=== PATIENT | female | born 1940 | race Caucasian/White ===

== ENCOUNTER → 2016-07-01 | Outpatient (CLI) | payer MEDICARE ==
[~2016-07-01] MED LIST: ACET-654 PO; ASPI325T PO; CARA1TAB2 PO; DICL75TA PO; LEXA5TAB13 PO; LISI40TAB PO; MAGN400T2 PO; OMEP20CA3 PO; ORPH100T PO; PROT1TAB2 PO; TUMS500C PO; VITA-130 PO; VITA100066 PO; VITMTA PO
--- NOTE | 2016-07-01 14:32 | REP ---
BILATERAL HIPS, AP PELVIS, FIVE VIEWS: HISTORY: Back and hip pain. RIGHT HIP: There is no acute fracture or dislocation. There is narrowing of the joint space. There is sclerosis of the acetabulum. IMPRESSION: Degenerative change as described above. LEFT HIP: There is no acute fracture or dislocation. There is narrowing of the joint space. There is sclerosis of the acetabulum.
== END ==
LOC: M CLY 12:51
PROVIDERS: ATTEND Family Medicine
DX: M15.9 Polyosteoarthritis, unspecified (principal); I10 Essential (primary) hypertension; K31.1 Adult hypertrophic pyloric stenosis

== ENCOUNTER → 2016-07-01 | Outpatient (REF) | payer MEDICARE ==
[2016-07-01 18:34] LABS: ALBUMIN 3.8 GM/DL (3.2-5.2); ALBUMIN/GLOBULIN RATIO 1.15 (1.00-1.93); BILIRUBIN,TOTAL 0.3 MG/DL (0.2-1.0); CALCIUM LEVEL 9.5 MG/DL (8.8-10.2); CREATININE FOR GFR 1.07 MG/DL (0.55-1.02); GLOMERULAR FILTRATION RATE 53.2 (>39); POTASSIUM SERUM 4.8 MEQ/L (3.5-5.1); TOTAL PROTEIN 7.1 GM/DL (6.4-8.2)
[2016-07-01 19:13] LABS: MEAN CORPUSCULAR HEMOGLOBIN 29.1 pg (27.0-33.0); MEAN CORPUSCULAR HGB CONC 31.5 g/dl (32.0-36.5); MEAN CORPUSCULAR VOLUME 92.6 fl (80.0-96.0); WHITE BLOOD COUNT 6.1 K/mm3 (4.0-10.0)
== END ==
LOC: M SFHCCLAY 12:32
PROVIDERS: ATTEND Family Medicine
DX: K31.1 Adult hypertrophic pyloric stenosis (principal); M15.9 Polyosteoarthritis, unspecified; I10 Essential (primary) hypertension

== ENCOUNTER 2016-07-18 05:05 | Emergency (ER) | payer MEDICARE ==
[~2016-07-18] VITALS: Ht 162.6 cm; Wt 90.7 kg
[2016-07-18] MEDS ORDERED: TRAM37.53 PO (05:34)
[2016-07-18] MEDS ORDERED: NITROGLYCERIN 0.4 MG SUBL TABLET SL PRN (06:00)
[2016-07-18 06:06] LABS: BASO % 0.6 % (0.0-1.0); EOS # 0.3 K/mm3 (0.0-0.50); EOS % 3.9 % (0.0-3.0); LARGE UNSTAINED CELL # 0.1 K/mm3 (0.0-0.4); LARGE UNSTAINED CELL % 1.6 % (0.0-4.0); LYMPH # 2.5 K/mm3 (1.5-4.5); LYMPH % 33.6 % (24.0-44.0); MEAN CORPUSCULAR HEMOGLOBIN 29.9 pg (27.0-33.0); MEAN CORPUSCULAR HGB CONC 32.9 g/dl (32.0-36.5); MEAN CORPUSCULAR VOLUME 90.8 fl (80.0-96.0); MONO # 0.4 K/mm3 (0.0-0.8); NEUTROPHILS # 3.9 K/mm3 (1.8-7.7); NEUTROPHILS % 55.3 % (36.0-66.0); PLATELET COUNT, AUTOMATED 233 k/mm3 (150-450); RED CELL DISTRIBUTION WIDTH 12.7 % (11.5-14.5)
[2016-07-18 06:18] LABS: ANION GAP 9 MEQ/L (8-16); BLOOD UREA NITROGEN 25 MG/DL (7-18); CALCIUM LEVEL 9.5 MG/DL (8.8-10.2); CARBON DIOXIDE LEVEL 23 MEQ/L (21-32); CHLORIDE LEVEL 108 MEQ/L (98-107); CREATININE FOR GFR 1.14 MG/DL (0.55-1.02); GLOMERULAR FILTRATION RATE 49.5 (>39); GLUCOSE, FASTING 95 MG/DL (83-110); POTASSIUM SERUM 4.7 MEQ/L (3.5-5.1); SODIUM LEVEL 140 MEQ/L (136-145)
[2016-07-18 06:30] VITALS: BP 171/80
[2016-07-18] MEDS ORDERED: ACETAMINOPHEN TAB 650MG DOSE (2X325MG) PO ONE (08:30)
--- NOTE | 2016-07-18 10:17 | REP ---
CHEST, TWO VIEWS: HISTORY: Chest pain. COMPARISON: 09/04/2015 FINDINGS: The superior mediastinal structures are midline. The cardiac silhouette is unremarkable in size, shape and position. The diaphragmatic surfaces of the lungs are regular and the costophrenic angles are clear. The pulmonary rojas are clear. The imaged osseous structures are intact. IMPRESSION: There is no acute cardiopulmonary disease. Signed by Jalen Farmer DO 07/18/2016 10:24 A
[2016-07-18 12:45] VITALS: BP 140/73
--- NOTE | 2016-07-18 14:48 | ECGEPIP ---
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
--- NOTE | 2016-07-18 14:50 | ECGEPIP ---
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
== END 2016-07-18 12:51 | disposition home or self-care (01) ==
LOC: M ED 06:47
DX: R07.89 Other chest pain (principal); I10 Essential (primary) hypertension; K21.9 Gastro-esophageal reflux disease without esophagitis; Z79.899 Other long term (current) drug therapy; Z79.891 Long term (current) use of opiate analgesic; Z88.0 Allergy status to penicillin

== ENCOUNTER → 2017-05-17 | Outpatient (REF) | payer MEDICARE ==
[2017-05-17 17:21] LABS: ALBUMIN 3.9 GM/DL (3.2-5.2); ALBUMIN/GLOBULIN RATIO 1.18 (1.00-1.93); ALKALINE PHOSPHATASE 93 U/L (45-117); ALT/SGPT 38 U/L (12-78); ANION GAP 5 MEQ/L (8-16); AST/SGOT 16 U/L (7-37); BILIRUBIN,TOTAL 0.3 MG/DL (0.2-1.0); BLOOD UREA NITROGEN 22 MG/DL (7-18); CALCIUM LEVEL 9.6 MG/DL (8.8-10.2); CARBON DIOXIDE LEVEL 29 MEQ/L (21-32); CHLORIDE LEVEL 108 MEQ/L (98-107); CREATININE FOR GFR 1.15 MG/DL (0.55-1.30); GLUCOSE, FASTING 85 MG/DL (70-100); POTASSIUM SERUM 4.6 MEQ/L (3.5-5.1); SODIUM LEVEL 142 MEQ/L (136-145); TOTAL PROTEIN 7.2 GM/DL (6.4-8.2)
[2017-05-17 17:41] LABS: HEMATOCRIT 47.8 % (36.0-47.0); MEAN CORPUSCULAR HEMOGLOBIN 28.7 pg (27.0-33.0); MEAN CORPUSCULAR HGB CONC 31.4 g/dl (32.0-36.5); MEAN CORPUSCULAR VOLUME 91.6 fl (80.0-96.0); PLATELET COUNT, AUTOMATED 256 10^3/uL (150-450); RED BLOOD COUNT 5.22 10^6/uL (4.00-5.40); WHITE BLOOD COUNT 6.9 10^3/uL (4.0-10.0)
== END ==
LOC: M SFHCCLAY 12:48
DX: I10 Essential (primary) hypertension (principal); M15.9 Polyosteoarthritis, unspecified
CPT/HCPCS: 80053

== ENCOUNTER → 2018-05-24 | Outpatient (REF) | payer MEDICARE ==
[~2018-05-24] MED LIST changes: -ACET-654 PO; +ACET1TAB55 PO; -CARA1TAB2 PO; +CARA1TAB6 PO; +LISI40TA52 PO; -LISI40TAB PO; +TRAM37.53 PO; -VITA-130 PO; +VITA500T PO
[2018-05-24 18:52] LABS: ALBUMIN 3.8 GM/DL (3.2-5.2); BILIRUBIN,TOTAL 0.3 MG/DL (0.2-1.0); CALCIUM LEVEL 9.8 MG/DL (8.8-10.2); CREATININE FOR GFR 1.16 MG/DL (0.55-1.30); GLOMERULAR FILTRATION RATE 48.4 (>39); POTASSIUM SERUM 4.6 MEQ/L (3.5-5.1); THYROID STIMULATING HORMONE 2.42 uIU/ML (0.358-3.740)
[2018-05-24 18:57] LABS: HEMATOCRIT 48.9 % (36.0-47.0); HEMOGLOBIN 15.4 g/dl (12.0-15.5); MEAN CORPUSCULAR HEMOGLOBIN 29.6 pg (27.0-33.0); MEAN CORPUSCULAR HGB CONC 31.5 g/dl (32.0-36.5); PLATELET COUNT, AUTOMATED 243 10^3/uL (150-450); WHITE BLOOD COUNT 6.2 10^3/uL (4.0-10.0)
== END ==
LOC: M SFHCCLAY 13:21
PROVIDERS: ATTEND Family Medicine
DX: I10 Essential (primary) hypertension (principal); M15.9 Polyosteoarthritis, unspecified
CPT/HCPCS: 80053; 84443; 85027; G0463; G8483

== ENCOUNTER → 2019-09-12 | Outpatient (REF) | payer MEDICARE ==
[~2019-09-12] MED LIST changes: +ASPI-1 PO; -ASPI325T PO; +OMEP1CAP73 PO; -OMEP20CA3 PO; +VITA-243 PO; -VITA500T PO
[2019-09-13 12:02] LABS: VITAMIN B12 LEVEL 939 PG/ML (247-911)
== END ==
LOC: M SFHCCLAY 13:53
PROVIDERS: ATTEND Family Medicine
DX: F03.90 Unspecified dementia, unspecified severity, without behavioral disturbance, psychotic disturbance, mood disturbance, and anxiety (principal)
CPT/HCPCS: 82607; 84443; 86780; G0463

== ENCOUNTER → 2019-10-02 | Outpatient (CLI) | payer MEDICARE ==
--- NOTE | 2019-10-02 12:07 | REPVR ---
PROCEDURE INFORMATION: Exam: MR Head Without Contrast Exam date and time: 10/02/2019 11:23 AM Age: 79 years old Clinical indication: Altered mental status/memory loss; Patient HX: Short term memory loss, ; additional info: Dementia without behavioral disturbance, unsp dementia type TECHNIQUE: Imaging protocol: MR of the head without contrast. COMPARISON: No relevant prior studies available. FINDINGS: Brain: No restricted diffusion is seen to suggest acute infarction. There is no acute intracranial hemorrhage, cerebral edema, or midline shift. Age-related cerebral and cerebellar substance loss is present. Scattered increased T2 and FLAIR signal within the periventricular and subcortical white matter is present. This is nonspecific but likely related to chronic microangiopathic ischemic change. Ventricles: Mild ex vacuo dilation of the lateral ventricles is noted. Bones/joints: Unremarkable. Sinuses: Normal as visualized. No acute sinusitis. Mastoid air cells: Normal as visualized. No mastoid effusion. Orbits: Unremarkable. Soft tissues: There is a 2.0 x 1.5 x 1.0 cm left forehead lipoma. IMPRESSION: 1. No acute intracranial abnormality. 2. Chronic findings as discussed above. Electronically signed by: Pankaj Killian On 10/02/2019 11:49:35 AM
== END ==
LOC: M RAD 10:10
PROVIDERS: ATTEND Family Medicine
DX: F03.90 Unspecified dementia, unspecified severity, without behavioral disturbance, psychotic disturbance, mood disturbance, and anxiety (principal)

== ENCOUNTER → 2020-05-08 | Outpatient (REF) | payer MEDICARE ==
[2020-05-08 11:52] LABS: HEMOGLOBIN 15.5 g/dl (12.0-15.5); MEAN CORPUSCULAR HEMOGLOBIN 28.8 pg (27.0-33.0); MEAN CORPUSCULAR HGB CONC 30.4 g/dl (32.0-36.5); MEAN CORPUSCULAR VOLUME 94.8 fl (80.0-96.0); PLATELET COUNT, AUTOMATED 263 10^3/uL (150-450); RED BLOOD COUNT 5.38 10^6/uL (4.00-5.40); WHITE BLOOD COUNT 6.7 10^3/uL (4.0-10.0)
[2020-05-08 12:20] LABS: ALBUMIN 3.9 GM/DL (3.2-5.2); BILIRUBIN,TOTAL 0.5 MG/DL (0.2-1.0); CALCIUM LEVEL 10.2 MG/DL (8.8-10.2); CHOLESTEROL RISK RATIO 4.06 (<5); CREATININE FOR GFR 1.31 MG/DL (0.55-1.30); GLOMERULAR FILTRATION RATE 41.8 (>39); POTASSIUM SERUM 4.5 MEQ/L (3.5-5.1); TOTAL PROTEIN 7.1 GM/DL (6.4-8.2)
== END ==
LOC: M SFHCCLAY 07:46
PROVIDERS: ATTEND Family Medicine
DX: M15.9 Polyosteoarthritis, unspecified (principal); I10 Essential (primary) hypertension

== ENCOUNTER → 2020-11-20 | Outpatient (CLI) | payer MEDICARE ==
--- NOTE | 2020-11-20 13:53 | REP ---
INDICATION: OSTEOARTHRITIS. COMPARISON: None. TECHNIQUE: Three views FINDINGS: There is no evidence of an acute fracture or destructive osseous lesion. There is evidence of sclerosis on both sides of each SI joint right greater than left. Sclerotic changes are also seen involving the pubic symphysis. IMPRESSION: There is no evidence of an acute abnormality. There are chronic changes seen involving the SI joints and pubic symphysis. Chronic sacroiliitis is likely. <Electronically signed by Jalen Farmer > 11/20/20 [id number]
== END ==
LOC: M CLY 13:21
PROVIDERS: ATTEND Family Medicine
DX: M19.91 Primary osteoarthritis, unspecified site (principal)

== ENCOUNTER 2021-01-13 12:35 | Inpatient (IN) | payer MEDICARE ==
[~2021-01-13] VITALS: Ht 152.4 cm; Wt 84.0 kg
--- OUTSIDE RECORDS SUMMARY | 2021-01-13 12:43 | CCD ---
Author Author [facility] Organization [facility] Address Unknown Phone Unavailable Care Team Providers Care Master Cook Name Role Phone Iam Guerrero Unavailable PROBLEMS Type Condition ICD9-CM Code [id number] Code Onset Dates Condition S tatus W/U Status Risk SNOMED Code Notes Problem Essential hypertension I10 Active confirmed 09028604 Problem Encounter for general adult medical exam ination with abnormal findings Z00.01 Active confirmed 214345804 Problem Dementia without behavioral disturbance, unspeci fied dementia type F03.90 Active confirmed 59044279 Problem Anxiety F41.9 Active confirmed 98607694 Problem Osteoarthrosis involving multiple sites M15.9 Active confirmed 717423864 Problem 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 Acti ve confirmed 92455312 Problem Encounter for immunization Z23 Active confirmed 085995962 ALLERGIES Allergen (clinical drug ingredient) Drug/Non Drug Allergy do cumented on EMR Reaction Allergy Type Onset Date Status Penicillin (For Allergies Use Only) Hives Drug Allerg y Active donepezil Donepezil HCl([facility] Code:[address]-32) nightmares Drug Moustapha rgy Active ENCOUNTERS from 1940 to 2020-11-24 Encounter Location Date Provider Diagnosis [facility] [phone] [place] [address] Nov, Iam Guerrero Osteoarthrosis involving multiple sites M15.9 and Essential hypertension I10 IMMUNIZATIONS Vaccine Route Administration Date Status COVID-19 dose #2 given elsewhere Unspecified Unknown Apr 26, 2020 Administered COVID-19 dose #1 given elsewhere Unspecified Unknown Mar 29, 2020 Administered Influenza 18 yrs & older Flublok IM Intramuscular Dec 26, 2019 Administered Influenza 18 yrs & older Flublok IM Intramuscular Jan 23, 2019 Administered Influenza 18 yrs & older Flublok Unknown May 24, 2018 Refused Pneumococcal Adult 0.5mL Pneumovax 23 IM Intramuscular Nov 17, 2017 Administered Pneumococcal 0.5mL Prevnar 13 IM Intramuscular July 30, 2015 A dministered SOCIAL HISTORY Tobacco Use: Social History Observation Description Date Details (start date - stop date) Never Smoker Sex Assigned At : Social History Observation Description Sex Assigned At Unknown Education: Question Answer Notes Level of Education: High School Audit Question Answer Notes Total Score: 0 Interpretation: Alcohol Education Sexual Hx: Question Answer Notes Had sex in the last 12 months (vaginal, oral, or anal)? No Have you ever had an STD? No Drug and Alcohol Question Answer Notes Total Score: 0 Interpretation: No problems reported Alcohol Screening: Question Answer Notes Did you have a drink containing alcohol in the past year? Ye s Points 1 Interpretation Negative How often did you have six or more drinks on one occas ion in the past year? Never (0 points) How many drinks did you have on a typica l day when you were drinking in the past year? 1 or 2 (0 points) How often did you have a drink containing alcohol in t he past year? Monthly or less (1 point) BMI Care Goal Follow-Up Question Answer Notes Above Normal BMI Follow-Up Dietary management educatio n, guidance, and counseling Tobacco Use: Question Answer Notes Are you a: never smoker never smoker Additional Findings: Tobacco User none Additional Findings: Tobacco Non-User Current non-smoker REASON FOR REFERRAL No Information VITAL SIGNS Weight 184.12 lbs Nov, Height 4'11" in Nov, BMI 37.18 kg/m2 Nov, Heart Rate 75 /min Nov, Respiratory Rate 18 /min Nov, Temperature 98 degrees Fahrenheit Nov, Oximetry 95RA Nov, Blood pressure systolic 120 mm Hg Nov, Blood pressure diastolic 80 mm Hg Nov, MEDICATIONS Medication SIG (Take, Route, Frequency, Duration) Notes Start Da te End Date Status Prevagen Extra Strength 20 MG as directed Orally Active tiZANidine HCl 4 MG 1 tablet as needed Orally Th ree times a day, prn spasm and pain July, Active Lisinopril 40 MG 1 tabs Orally Once a day Active Multi For Her 1 tab Orally once daily Active traMADol-Acetaminophen 325-37.5 MG 1 tab Orally every 8 hours as needed for pain, MDD=3 25 Apr, 2019 Active PROCEDURES No Information RESULTS No Results REASON FOR VISIT 6 mo f/u MEDICAL (GENERAL) HISTORY Type Description Date Medical History HTN Medical History OA Medical History PYLORIC SPHINCTER STENOSIS (2X UNDERWENT ATTMPT TO DILATE) Medical History History of duodenal ulcer Medical History Duodenal stricture Surgical History APPENDIX Surgical History GALLBLADDER Surgical History ETOPIC Surgical History TONSILS Hospitalization History Abd pain secondary to pyloric stenos is/duodentis 09/04/2015-09/06/2015 Goals Section No Information Health Concerns No Information MEDICAL EQUIPMENT No Information MENTAL STATUS No Information FUNCTIONAL STATUS No Information ASSESSMENTS Encounter Date Diagnosis Assessment Notes Treatment Notes Treatm ent Clinical Notes Nov, Osteoarthrosis involving multiple sites (ICD-10 - M15.9) Nov, Essential hypertension (ICD-10 - I10) PLAN OF TREATMENT Medication Medication Name Sig Start Date Stop Date Prevagen Extra Strength 20 MG as directed Orally Multi For Her 1 tab Orally once daily traMADol-Acetaminophen 325-37.5 MG 1 tab Orally every 8 hours as needed for pain, MDD=3 25 Apr, 2019 Lisinopril 40 MG 1 tabs Orally Once a day tiZANidine HCl 4 MG 1 tablet as needed Orally Th ree times a day, prn spasm and pain July, Future Test Test Name Order Date Comprehensive Metabolic Profile (CMP) [id number] CBC - Complete Blood Count [id number] [facility] [employer] [id number] Next Appt Details 4 Months Reason: Insurance Providers Payer Name Payer Address Payer Phone Insured Name Patient Relati onship to Insured Coverage Start Date Coverage End Date [employer] OPTIONS [facility] CLAIM DIV [address] [facility] [phone] ARUN SHORT self MEDICARE RR [address] [address] [facility] [id number] SONDRA SHORT 2005
--- OUTSIDE RECORDS SUMMARY | 2021-01-13 12:43 | CCD ---
Author Author [facility] Organization [facility] Address Unknown Phone Unavailable Care Team Providers Care Stripper And Taper Name Role Phone Iam Guerrero Unavailable PROBLEMS Type Condition ICD9-CM Code [id number] Code Onset Dates Condition S tatus W/U Status Risk SNOMED Code Notes Problem Essential hypertension I10 Active confirmed 00250548 Problem Anxiety F41.9 Active confirmed 08271381 Problem Dementia without behavioral disturbance, unspeci fied dementia type F03.90 Active confirmed 82563689 Problem Sacroiliitis M46.1 Active confirmed 7916998 9 Problem Osteoarthrosis involving multiple sites M15.9 Active confirmed 289838353 Problem 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 Acti ve confirmed 77517114 Problem Encounter for immunization Z23 Active confirmed 507964970 Problem Encounter for general adult medical exam ination with abnormal findings Z00.01 Active confirmed 265555058 ALLERGIES Allergen (clinical drug ingredient) Drug/Non Drug Allergy do cumented on EMR Reaction Allergy Type Onset Date Status Penicillin (For Allergies Use Only) Hives Drug Allerg y Active donepezil Donepezil HCl([facility] Code:[address]-91) nightmares Drug Moustapha rgy Active ENCOUNTERS from 1940 to 2020-11-26 Encounter Location Date Provider Diagnosis [place] [address] [facility] [phone] [place] [address] Nov, 2020 Iam Guerrero Sacroiliitis M46.1 IMMUNIZATIONS Vaccine Route Administration Date Status COVID-19 [...] Tobacco Non-User Current non-smoker REASON FOR REFERRAL from 1940 to 2020-11-26 Reason please eval and treat Diagnosis 1 Sacroiliitis (M46.1) Referral Organization [facility] Referring Provider First Name Iam Referring Provider Last Name Guerrero Referring Provider Specialty Family Medicine Referred Provider Specialty Physical Therapist Referral Priority Routine VITAL SIGNS No information MEDICATIONS Medication SIG (Take, Route, Frequency, Duration) [...] Information RESULTS No Results REASON FOR VISIT No Information MEDICAL (GENERAL) HISTORY Type Description Date Medical [...] Treatment Notes Treatm ent Clinical Notes Nov, Sacroiliitis (ICD-10 - M46.1) PLAN OF TREATMENT Medication Medication Name Sig [...] a day, prn spasm and pain July, Referrals Referral Date Details please eval and treat Insurance Providers Payer Name Payer Address Payer Phone Insured Name Patient Relati onship to Insured Coverage Start Date Coverage End Date [facility] OPTIONS [facility] CLAIM DIV [address] [facility] [phone] ARUN SHORT MEDICARE RR [address] [address] [facility] [id number] SONDRA SHORT 2005
--- OUTSIDE RECORDS SUMMARY | 2021-01-13 12:43 | CCD ---
Author Author [facility] Organization [facility] Address Unknown Phone Unavailable Care Team Providers Care Irrigation Service Technician Name Role Phone Iam Guerrero Unavailable PROBLEMS Type Condition ICD9-CM Code [id number] Code Onset Dates Condition S tatus W/U Status Risk SNOMED Code Notes Problem Essential hypertension I10 Active confirmed 20787122 Problem Anxiety F41.9 Active confirmed 82826973 Problem Dementia without behavioral disturbance, unspeci fied dementia type F03.90 Active confirmed 94792043 Problem Sacroiliitis M46.1 Active confirmed 8582378 9 Problem Osteoarthrosis involving multiple sites M15.9 Active confirmed 021525459 Problem 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 Acti ve confirmed 47856715 Problem Encounter for immunization Z23 Active confirmed 838085805 Problem Encounter for general adult medical exam ination with abnormal findings Z00.01 Active confirmed 370678939 ALLERGIES Allergen (clinical drug ingredient) Drug/Non Drug Allergy do cumented on EMR Reaction Allergy Type Onset Date Status Penicillin (For Allergies Use Only) Hives Drug Allerg y Active donepezil Donepezil HCl([facility] Code:[address]-13) nightmares Drug Moustapha rgy Active ENCOUNTERS from 1940 to 2020-11-26 Encounter Location Date Provider Diagnosis [facility] [phone] [place] [address] Nov, Iam Guerrero Osteoarthrosis involving multiple sites [...] REASON FOR REFERRAL No Information VITAL SIGNS No information MEDICATIONS Medication SIG (Take, Route, Frequency, Duration) Notes Start Da te End Date Status Prevagen Extra Strength 20 MG as directed Orally Active traMADol-Acetaminophen 325-37.5 MG 1 tab Orally every 8 hours as needed for pain, MDD=3 for 30 Days Nov, Active tiZANidine HCl 4 MG 1 tablet as needed Orally Th ree times a day, prn spasm and pain July, Active Multi For Her 1 tab Orally once daily Active Lisinopril 40 MG 1 tabs Orally Once a day for 90 day(s) Active PROCEDURES No Information RESULTS No Results REASON FOR VISIT med refill MEDICAL (GENERAL) HISTORY Type Description Date Medical [...] For Her 1 tab Orally once daily Lisinopril 40 MG 1 tabs Orally Once a day for 90 day(s) tiZANidine HCl 4 MG 1 tablet as needed Orally Th ree times a day, prn spasm and pain July, traMADol-Acetaminophen 325-37.5 MG 1 tab Orally every 8 hours as needed for pain, MDD=3 for 30 Days Nov, Insurance Providers Payer Name Payer Address Payer Phone Insured Name Patient Relati onship to Insured Coverage Start Date Coverage End Date [employer] OPTIONS [facility] CLAIM DIV [address] [facility] [phone] ARUN SHORT self MEDICARE RR [address] [address] [facility] [id number] SONDRA SHORT 2005
--- OUTSIDE RECORDS SUMMARY | 2021-01-13 12:43 | CCD ---
Author Author [facility] Address Unknown Phone Unavailable Support Name Relationship Address Phone RE Next Of Kin Unknown Unavailable THOMAS SHORT Next Of Kin [address] [place] [address] [place], [place] Unavailable Re-disclosure Warning The records that you are about to access may contain information from federally-assisted alcohol or drug abuse programs. If such information is present, then the following federally mandated warning applies: This information has been disclosed to you from records protected by federal confidentiality rules (42 CFR part 2). The federal rules prohibit you from making any further disclosure of this information unless further disclosure is expressly permitted by the written consent of the person to whom it pertains or as otherwise permitted by 42 CFR part 2. A general authorization for the release of medical or other information is NOT sufficient for this purpose. The Federal rules restrict any use of the information to criminally investigate or prosecute any alcohol or drug abuse patient.The records that you are about to access may contain highly sensitive health information, the redisclosure of which is protected by Article 27-F of the [facility] Public Health law. If you continue you may have access to information: Regarding HIV / AIDS; Provided by facilities licensed or operated by the [facility] Office of Mental Health; or Provided by the [facility] Office for People With Developmental Disabilities. If such information is present, then the following [facility] mandated warning applies: This information has been disclosed to you from confidential records which are protected by state law. State law prohibits you from making any further disclosure of this information without the specific written consent of the person to whom it pertains, or as otherwise permitted by law. Any unauthorized further disclosure in violation of state law may result in a fine or half-way sentence or both. A general authorization for the release of medical or other information is NOT sufficient authorization for further disc losure. Family History Family Member Name Family Member Gender Family Member Status Date o f Status Description Data Source(s) Unknown Female Problem MEDENT ([facility]) Unknown Female Problem MEDENT ([facility]) Unknown Unknown Problem MEDENT ([facility]) Encounters Encounter Providers Location Date Indications Data Source(s ) [place] [address] [facility] [facility] [address] 11/26/2020 12:00:00 AM EDT [facility] [place] [address] [facility] [facility] [address] 11/25/2020 12:00:00 AM EDT [facility] [place] [address] [facility] [facility] [address] 11/13/2020 12:00:00 AM EDT [facility]1 [facility] [place] [address] [facility] [address] 04/30/2020 12:00:00 AM EST eCW1 ([facility]) [place] [address] [facility] [address] 12/26/2019 12:00:00 AM EDT eCW1 ([facility]) [place] [address] [facility] [address] 12/26/2019 12:00:00 AM EDT eCW1 ([facility]) [place] [address] [facility] [address] 12/12/2019 12:00:00 AM EDT eCW1 ([facility]) [facility] [address] [facility] [address] 11/20/2019 12:00:00 AM EDT eCW1 ([facility]) Immunizations Vaccine Date Status Description Data Source(s) COVID-19 dose #2 given elsewhere Unspecified 04/26/2020 01:5 9:00 PM EST completed eCW1 ([facility]) COVID-19 dose #2 given elsewhere Unspecified 04/26/2020 01:5 9:00 PM EST completed eCW1 ([facility]) COVID-19 dose #2 given elsewhere Unspecified 04/26/2020 01:5 9:00 PM EST completed eCW1 ([facility]) COVID-19 dose #2 given elsewhere Unspecified 04/26/2020 01:5 9:00 PM EST completed eCW1 ([facility]) COVID-19 VACCINE Moderna 04/26/2020 12:00:00 AM EST completed [facility] Vaccine Series Complete: YESThis Data wa s Submitted to [facility] Via [employer]. COVID-19 VACCINE, MRNA-1273, LNP-S (MODERNA)/PF 04/26/2020 1 2:00:00 AM EST completed [facility] COVID-19 dose #1 given elsewhere Unspecified 03/29/2020 06:4 1:00 AM EST completed eCW1 ([facility]) COVID-19 dose #1 given elsewhere Unspecified 03/29/2020 06:4 1:00 AM EST completed eCW1 ([facility]) COVID-19 dose #1 given elsewhere Unspecified 03/29/2020 06:4 1:00 AM EST completed eCW1 ([facility]) COVID-19 dose #1 given elsewhere Unspecified 03/29/2020 06:4 1:00 AM EST completed eCW1 ([facility]) COVID-19 VACCINE, MRNA-1273, LNP-S (MODERNA)/PF 03/29/2020 1 2:00:00 AM EST completed [facility] COVID-19 VACCINE Moderna 03/29/2020 12:00:00 AM EST completed [facility] Vaccine Series Complete: NOThis Data was Submitted to [facility] Via [employer]. influenza, recombinant, quadrIvalent,injectable, prese rvative free 12/26/2019 09:24:00 AM EDT completed eCW1 ([facility]) influenza, recombinant, quadrIvalent,injectable, prese rvative free 12/26/2019 09:24:00 AM EDT completed eCW1 ([facility]) influenza, recombinant, quadrIvalent,injectable, prese rvative free 12/26/2019 09:24:00 AM EDT completed eCW1 ([facility]) influenza, recombinant, quadrIvalent,injectable, prese rvative free 12/26/2019 09:24:00 AM EDT completed eCW1 ([facility]) influenza, recombinant, quadrIvalent,injectable, prese rvative free 12/26/2019 09:24:00 AM EDT completed eCW1 ([facility]) influenza, recombinant, quadrIvalent,injectable, prese rvative free 12/26/2019 09:24:00 AM EDT completed eCW1 ([facility]) Medications Medication Brand Name Start Date Product Form Dose Route Admi nistrative Instructions Pharmacy Instructions Status Indications Reaction Description Data Source(s) traMADol-Acetaminophen 325-37.5 MG UNK 11/26/2020 12:00:00 AM EDT active traMADol-Acetaminophen 325-37.5 MG eCW1 ([facility]) Insurance Providers Payer name Policy type / Coverage type Policy ID Covered democrat ID Covered democrat's relationship to cárdenas Policy Cárdensa Plan Information [facility] OPTIONS [id number] Medicare [employer] Medicare Primary [id number] Self [facility] [id number] Self [id number] Medicare [employer] [place] Medicare Primary [id number] Self [id number] [facility] Healthcare Options [facility] Part B [id number] Self ANS-Medicare Part B [id number] ANSI-Commercial [id number] ANSI-Commercial [id number] ANSI-Medicare Part B [id number] ANSI-Commercial [id number] ANSI-Medicare Part B [id number] ANSI-Commercial [id number] ANSI-Medicare Part B [id number] ANSI-Commercial [id number] ANSI-Medicare Part B [id number] ANSI-Medicare Part B [id number] ANSI-Commercial [id number] ANSI-Medicare Part B [id number] ANSI-Commercial [id number] ANSI-Commercial [id number] ANSI-Medicare Part B [id number] ANSI-Commercial [id number] ANSI-Medicare Part B [id number] ANSI-Commercial [id number] ANSI-Medicare Part B [id number] ANSI-Commercial [id number] ANSI-Medicare Part B [id number] ANSI-Medicare Part B [id number] ANSI-Commercial [id number] [employer] HE[employer] CARE OPTIONS [id number] SP [id number] MEDICARE [id number] SP [id number] AARP O [id number] S [id number] [employer] MEDICARE C [id number] S [id number] MEDICARE C [id number] S [id number] Medicare Dme Supplies [facility] Part B [id number] Self [id number] [facility] [facility] Options [facility] Part B [id number] Self Medicare [address] Medicare Primary [id number] Self [employer] C[employer] OPTIONS [id number] SP [id number] [facility] Options [facility] Part B [id number] Self MEDICARE [id number] SP [id number] MEDICARE [id number] SP [id number] MEDICARE C [id number] S [id number] AARP O [id number] S [id number] Problems, Conditions, and Diagnoses Code Display Name Description Problem Type Effective Dates Data Source(s) M46.1 [id number] Sacroiliitis Problem 11/25/2020 12:00:00 AM EDT eCW1 ([facility]) Surgeries/Procedures Procedure Description Date Indications Data Source(s) Immunization: Flublok Quadrivalent (18 years & older) 0.5mL IM (Influenza) 12/26/2019 12:00:00 AM EDT eCW1 ([facility]) Results No Information Social History Code Duration Value Status Description Data Source(s ) Smoking 11/13/2020 12:00:00 AM EDT Never Smoker completed Never S bekahker eCW1 ([facility]) Smoking 11/13/2020 12:00:00 AM EDT Never Smoker completed Never S moker eCW1 ([facility]) Smoking 11/13/2020 12:00:00 AM EDT Never Smoker completed Never S moker eCW1 ([facility]) Smoking 04/30/2020 12:00:00 AM EST Never Smoker completed Never S moker eCW1 ([facility]) Smoking 12/26/2019 12:00:00 AM EDT Never Smoker completed Never S moker eCW1 ([facility]) Smoking 12/26/2019 12:00:00 AM EDT Never Smoker completed Never S moker eCW1 ([facility]) Vital Signs ID Date Data Source UNK Name Value Range Interpretation Code Description Data Source(s) Body mass index (BMI) [Ratio] 37.18 kg/m2 37.18 kg/m2 eCW1 ([facility]) Heart rate 75 /min 75 /min eCW1 ([facility]) Respiratory rate 18 /min 18 /min eCW1 ([facility]) Body temperature 98 [degF] 98 [degF] eCW1 ([facility]) Systolic blood pressure 120 mm[Hg] 120 mm[Hg] e CW1 ([facility]) Diastolic blood pressure 80 mm[Hg] 80 mm[Hg] eCW1 ([facility]) Body weight 184.12 [lb_av] 184.12 [lb_av] eCW1 ([facility]) Body height [in_i] eCW1 ([facility]) Body weight 198 [lb_av] 198 [lb_av] eCW1 ([facility]) Body height [in_i] eCW1 ([facility]) Body mass index (BMI) [Ratio] 39.99 kg/m2 39.99 kg/m2 eCW1 ([facility]) Heart rate 72 /min 72 /min eCW1 ([facility]) Respiratory rate 18 /min 18 /min eCW1 ([facility]) Body temperature 98 [degF] 98 [degF] eCW1 ([facility]) Systolic blood pressure 130 mm[Hg] 130 mm[Hg] e CW1 ([facility]) Diastolic blood pressure 80 mm[Hg] 80 mm[Hg] eCW1 ([facility]) Body weight 197 [lb_av] 197 [lb_av] eCW1 ([facility]) Body height [in_i] eCW1 ([facility]) Body mass index (BMI) [Ratio] 39.78 kg/m2 39.78 kg/m2 eCW1 ([facility]) Heart rate 68 /min 68 /min eCW1 ([facility]) Respiratory rate 18 /min 18 /min eCW1 ([facility]) Body temperature 98 [degF] 98 [degF] eCW1 ([facility]) Systolic blood pressure 114 mm[Hg] 114 mm[Hg] e CW1 ([facility]) Diastolic blood pressure 75 mm[Hg] 75 mm[Hg] eCW1 ([facility]) Patient Treatment Plan of Care Planned Activity Planned Date Details Description Data Source (s) traMADol-Acetaminophen 325-37.5 MG 11/26/2020 12:00:00 AM EDT eCW1 ([facility])
[2021-01-13] MEDS ORDERED: NS 1,000 ML IV SCH (14:05)
[2021-01-13 14:09] LABS: BASO % 0.3 % (0.0-1.0); EOS % 0.1 % (0.0-3.0); HEMATOCRIT 45.4 % (36.0-47.0); HEMOGLOBIN 14.2 g/dl (12.0-15.5); LYMPH # 1.9 10^3/uL (1.5-5.0); MEAN CORPUSCULAR HEMOGLOBIN 28.1 pg (27.0-33.0); MEAN CORPUSCULAR HGB CONC 31.3 g/dl (32.0-36.5); MEAN CORPUSCULAR VOLUME 89.7 fl (80.0-96.0); MONO # 0.8 10^3/uL (0.0-0.8); MONO % 7.1 % (2.0-8.0); NEUTROPHILS % 74.2 % (36.0-66.0); PLATELET COUNT, AUTOMATED 354 10^3/uL (150-450); RED BLOOD COUNT 5.06 10^6/uL (4.00-5.40); WHITE BLOOD COUNT 10.8 10^3/uL (4.0-10.0)
[2021-01-13 14:29] LABS: ALBUMIN 3.5 GM/DL (3.2-5.2); BILIRUBIN,DIRECT 0.2 MG/DL (0.0-0.2); BILIRUBIN,TOTAL 0.9 MG/DL (0.2-1.0); CALCIUM LEVEL 11.1 MG/DL (8.8-10.2); CREATININE FOR GFR 1.38 MG/DL (0.55-1.30); GLOMERULAR FILTRATION RATE 39.3 (>39); POTASSIUM SERUM 3.1 MEQ/L (3.5-5.1); TOTAL PROTEIN 8.5 GM/DL (6.4-8.2)
[2021-01-13] MEDS ORDERED: POTASSIUM CHLORIDE 10MEQ SR TABLET PO ONE (15:40)
--- OUTSIDE RECORDS SUMMARY | 2021-01-13 15:45 | CCD ---
Author Author [facility] Organization [facility] Address Unknown Phone Unavailable Support Name Relationship Address Phone GETACHEW ARRINGTON Next Of Kin [address] [place] [address] RE Next Of Kin Unknown Unavailable THOMAS SHORT Next Of Kin [address] [place] [address] HANTHOMAS GAR [place], [place] Unavailable Re-disclosure Warning The records that [...] is protected by Article 27-F of the [facility] Public Health law. If you continue you may have access to information: Regarding HIV / AIDS; Provided by facilities licensed or operated by the [facility] Office of Mental Health; or Provided by the [facility] Office for People With Developmental Disabilities. If such information is present, then the following [facility] mandated warning applies: This information has been [...] law may result in a fine or [place] health [place] sentence or both. A general authorization for [...] Date Indications Data Source(s ) [place] [address] [facility] [address] 11/26/2020 12:00:00 AM EDT eCW1 ([facility] [place] [address] [facility] [address] 11/25/2020 12:00:00 AM EDT [facility]CW1 [facility] [address] [facility] [place] [address] 11/13/2020 12:00:00 AM EDT eCW1 ([facility] [place] [place] [address] [facility] [address] 04/30/2020 12:00:00 AM EST [facility]1 [facility] [place] [place] [address] [facility] [address] 12/26/2019 12:00:00 AM EDT eCW1 [facility] [place]) Unknown [address] [facility] [place] [address] 12/26/2019 12:00:00 AM EDT [facility] [place] [address] [facility] [address] 12/12/2019 12:00:00 AM EDT eCW1 ([facility] [place] [address] [facility] [address] 11/20/2019 12:00:00 AM EDT eCW1 [facility] [place]) Immunizations Vaccine Date Status Description Data Source(s) COVID-19 dose #2 given elsewhere Unspecified 04/26/2020 01:5 9:00 PM EST completed [facility]CW1 [facility] [place]) COVID-19 dose #2 given elsewhere Unspecified 04/26/2020 01:5 9:00 PM EST completed eCW1 ([facility]) COVID-19 dose #2 given elsewhere Unspecified 04/26/2020 01:5 9:00 PM EST completed eCW1 ([facility]) COVID-19 dose #2 given elsewhere Unspecified 04/26/2020 01:5 9:00 PM EST completed eCW1 ([facility]) COVID-19 VACCINE Moderna 04/26/2020 12:00:00 AM EST completed [facility] Vaccine Series Complete: YESThis Data wa s Submitted to [facility] [employer]. COVID-19 VACCINE, MRNA-1273, LNP-S (MODERNA)/PF 04/26/2020 1 2:00:00 AM EST completed [facility] COVID-19 dose #1 given elsewhere Unspecified 03/29/2020 06:4 1:00 AM EST completed eCW1 ([facility]) COVID-19 dose #1 given elsewhere Unspecified 03/29/2020 06:4 1:00 AM EST completed eCW1 ([facility]) COVID-19 dose #1 given elsewhere Unspecified 03/29/2020 06:4 1:00 AM EST completed eCW1 ([facility]) COVID-19 dose #1 given elsewhere Unspecified 03/29/2020 06:4 1:00 AM EST completed eCW1 ([facility]) COVID-19 VACCINE, MRNA-1273, LNP-S (MODERNA)/PF 03/29/2020 1 2:00:00 AM EST completed [facility] COVID-19 VACCINE Moderna 03/29/2020 12:00:00 AM EST completed [facility] Vaccine Series Complete: NOThis Data was Submitted to [facility] [employer]. influenza, recombinant, quadrIvalent,injectable, prese rvative free 12/26/2019 09:24:00 AM EDT completed eCW1 ([facility]) influenza, recombinant, quadrIvalent,injectable, prese rvative free 12/26/2019 09:24:00 AM EDT completed eCW1 ([facility]) influenza, recombinant, quadrIvalent,injectable, prese rvative free 12/26/2019 09:24:00 AM EDT completed eCW1 ([facility]) influenza, recombinant, quadrIvalent,injectable, prese rvative free 12/26/2019 09:24:00 AM EDT completed eCW1 ([facility]) influenza, recombinant, quadrIvalent,injectable, prese rvative free 12/26/2019 09:24:00 AM EDT completed eCW1 ([facility]) influenza, recombinant, quadrIvalent,injectable, prese rvative free 12/26/2019 09:24:00 AM EDT completed eCW1 ([facility]) Medications Medication Brand Name Start Date Product Form Dose Route Admi nistrative Instructions Pharmacy Instructions Status Indications Reaction Description Data Source(s) traMADol-Acetaminophen 325-37.5 MG UNK 11/26/2020 12:00:00 AM EDT active traMADol-Acetaminophen 325-37.5 MG eCW1 ([facility]) Insurance Providers Payer name Policy type / Coverage type Policy ID Covered alliance party ID Covered alliance party's relationship to cárdenas Policy Cárdenas Plan Information [facility] HEALTH CARE OPTIONS [id number] SP [id number] Medicare [employer] Medicare Primary [id number] Self [facility] Healthcare Options [facility] Part B [id number] Self [id number] Medicare [employer] [place] Medicare Primary [id number] Self [id number] [facility] [id number] Self ANS-Medicare Part B [id number] ANSI-Commercial [id number] ANSI-Commercial [id number] ANSI-Medicare Part B [id number] ANSI-Commercial [id number] ANSI-Medicare Part B [id number] ANSI-Commercial [id number] ANSI-Medicare Part B [id number] ANSI-Commercial [id number] ANSI-Medicare Part B [id number] ANSI-Medicare Part B [id number] ANSI-Commercial [id number] ANSI-Medicare Part B [id number] ANSI-Commercial [id number] ANSI-Commercial [id number] ANSI-Medicare Part B [id number] ANSI-Commercial [id number] ANSI-Medicare Part B [id number] ANSI-Commercial [id number] ANSI-Medicare Part B [id number] ANSI-Commercial [id number] ANSI-Medicare Part B [id number] [facility]-Medicare Part B [id number] ANSI-Commercial [id number] [employer] HE[employer] CARE OPTIONS [id number] SP [id number] MEDICARE [id number] SP [id number] AARP O [id number] S [id number] [employer] MEDICARE C [id number] S [id number] MEDICARE C [id number] S [id number] Medicare Dme Supplies [facility] Part B [id number] Self [id number] [facility] Options [facility] Part B [id number] Self Medicare [address] Medicare Primary [id number] Self MEDICARE [id number] SP [id number] [facility] Options [facility] Part B [id number] Self [employer] CARE OPTIONS [id number] SP [id number] MEDICARE [id number] SP [id number] MEDICARE C [id number] S [id number] AARP O [id number] S [id number] Problems, Conditions, and Diagnoses Code Display Name Description Problem Type Effective Dates Data Source(s) M46.1 [id number] Sacroiliitis Problem 11/25/2020 12:00:00 AM EDT eCW1 ([facility]) Surgeries/Procedures Procedure Description Date Indications Data Source(s) Immunization: Flublok Quadrivalent (18 years & older) 0.5mL IM (Influenza) 12/26/2019 12:00:00 AM EDT eCW1 ([facility]) Results No Information Social History Code Duration Value Status Description Data Source(s ) Smoking 11/13/2020 12:00:00 AM EDT Never Smoker completed Never S moker eCW1 ([facility]) Smoking 11/13/2020 12:00:00 AM EDT Never Smoker completed Never S moker eCW1 ([facility]) Smoking 11/13/2020 12:00:00 AM EDT Never Smoker completed Never S moker eCW1 ([facility]) Smoking 04/30/2020 12:00:00 AM EST Never Smoker completed Never S moker eCW1 ([facility]) Smoking 12/26/2019 12:00:00 AM EDT Never Smoker completed Never S moker eCW1 ([facility]) Smoking 12/26/2019 12:00:00 AM EDT Never Smoker completed Never S moker eCW1 ([facility]) Vital Signs ID Date Data Source UNK Name Value Range Interpretation Code Description Data Source(s) Systolic blood pressure 120 mm[Hg] 120 mm[Hg] e CW1 ([facility]) Body mass index (BMI) [Ratio] 37.18 kg/m2 37.18 kg/m2 eCW1 ([facility]) Heart rate 75 /min 75 /min eCW1 ([facility]) Respiratory rate 18 /min 18 /min eCW1 ([facility] hospital) Body weight 184.12 [lb_av] 184.12 [lb_av] eCW1 ([facility]) Body height [in_i] eCW1 ([facility]) Diastolic blood pressure 80 mm[Hg] 80 mm[Hg] eCW1 ([facility]) Body temperature 98 [degF] 98 [degF] eCW1 ([facility] hospital) Body weight 198 [lb_av] 198 [lb_av] eCW1 (On license of [facility]) Body height [in_i] eCW1 ([facility]) Body mass index (BMI) [Ratio] 39.99 kg/m2 39.99 kg/m2 eCW1 ([facility]) Heart rate 72 /min 72 /min eCW1 ([facility]) Respiratory rate 18 /min 18 /min eCW1 ([facility]) Body temperature 98 [degF] 98 [degF] eCW1 ([facility]) Systolic blood pressure 130 mm[Hg] 130 mm[Hg] e CW1 ([facility]) Diastolic blood pressure 80 mm[Hg] 80 mm[Hg] eCW1 ([facility]) Body weight 197 [lb_av] 197 [lb_av] eCW1 (On license of [facility]) Body height [in_i] eCW1 ([facility]) Body mass index (BMI) [Ratio] 39.78 kg/m2 39.78 kg/m2 eCW1 ([facility]) Heart rate 68 /min 68 /min eCW1 ([facility]) Respiratory rate 18 /min 18 /min eCW1 ([facility]) Body temperature 98 [degF] 98 [degF] eCW1 (Critical [facility] hospital) Systolic blood pressure 114 mm[Hg] 114 mm[Hg] e CW1 ([facility]) Diastolic blood pressure 75 mm[Hg] 75 mm[Hg] eCW1 ([facility]) Patient Treatment Plan of Care Planned Activity Planned Date Details Description Data Source (s) traMADol-Acetaminophen 325-37.5 MG 11/26/2020 12:00:00 AM EDT eCW1 ([facility])
--- NOTE | 2021-01-13 16:34 | REP ---
INDICATION: abd pain. COMPARISON: 09/04/2015 the latest prior TECHNIQUE: Standard helical technique without contrast FINDINGS: In the atiya basal segment of the left lower lobe a 7 mm sized ground-glass nodule has developed. There is no other significant change in the lung bases. Limited evaluation of the solid intra-abdominal organs, pancreas, adrenal glands, and kidneys show no significant changes compared to the prior exam. Large bilateral renal parapelvic cysts are noted status quo. The stomach is mildly to moderately distended and content filled. Fluid and gas is seen within the duodenum, however, there is some evidence of narrowing of the sweep. The bowel loops and the mesenteries are otherwise unremarkable. There is no evidence of free fluid or free air. Bone window technique throughout the exam shows chronic spinal degenerative changes and chronic changes in the hips and sacroiliac joints. This appears stable to slightly increased. IMPRESSION: Findings involving the stomach and duodenum as described above. Possible gastric outlet obstruction cannot be ruled out by this exam. Other findings and chronic changes as described above. There is a new ground-glass nodule in the left lung base as described above. According to the revised Fleischner society criteria diagnostic contrast-enhanced CT examination of the chest is recommended. <Electronically signed by Jalen Farmer > 01/13/21 [id number]
[2021-01-13] MEDS ORDERED: PANTOPRAZOLE 40MG VIAL (C9113 PER 1) IV ONE (17:45)
[2021-01-13] MEDS ORDERED: LISI40TA4 PO (18:19)
[2021-01-13] MEDS ORDERED: [UNRECOGNIZED DRUG - OTHER] PO (18:19)
[2021-01-13] MEDS ORDERED: PREVAGEN PO (18:21)
[2021-01-13] MEDS ORDERED: ONDANSETRON 4MG/2ML VIAL IV PRN (18:25)
[2021-01-13] MEDS ORDERED: HOME MED LIST COMPLETE! XX SCH (18:25)
[2021-01-13 18:29] LABS: RSV AMPLIFICATION NEGATIVE (NEGATIVE)
--- NOTE | 2021-01-13 18:35 | HPEPDOC ---
[facility] Medical History & Physical Date of Admission Jan 13, 2021 Date of Service: Jan 13, 2021 History and Physical Chief complaint: Who presented to the ER with nausea and vomiting for all of yesterday History of present illness: Patient is a 80-year-old female with a PMHx of Alzheimers, Pyloric sphincter stenosis (s/p dilation x2), Duodenal Stricture, Duodenal Ulcer, HTN, OA, who presented to the ER with complaints of nausea and vomiting for all of yesterday. Patient is accompanied by her daughter who was present at the bedside. Patient is a poor historian and her daughter notes that she is beginning to have Alzheimers. Patient reported that all of yesterday she was vomiting greater than 10 episodes without blood. Patient reports some tightness involving the lower part of her chest radiating throughout her sides into her back. Her last meal was yesterday. Patient denies any shortness of breath or cough. Denies any diarrhea or constipation. Reports her last bowel movement was yesterday. Denies any urinary discomfort. Patient reports that she experiences chills. 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 Review of Systems: 10 point review of systems complete, all negative otherwise stated in HPI Physical exam: - Vitals: BP [171/81], HR [110], RR [20], Sat [97%RA], Temp [98.1F] - General: Lying in bed, No acute distress, Speaking in full sentences, AAOx3 - HEENT: NC, AT, PERRLA - CVS: RRR, +S1S2 - Lungs: Fair air entry bilaterally, No appreciable wheezing / rales / rhonchi - Abdomen: Soft, Non-distended, Non-tender - Extremities: No lower extremity edema, No calf tenderness - Neuro: 5/5 strength at upper and lower extremity bilaterally - Skin: No visible rashes Labs: See below Imaging: CT abdomen / pelvis 01/13: Findings involving the stomach and duodenum as described above. Possible gastric outlet obstruction cannot be ruled out by this exam. Other findings and chronic changes as described above. There is a new ground-glass nodule in the left lung base as described above. According to the revised Fleischner society criteria diagnostic contrast-enhanced CT examination of the chest is recommended. EKG: See below Assessment and Plan: Nausea / Vomiting - likely 2/2 gastric outlet obstruction - Hx of Pyloric sphincter stenosis (s/p dilation x2) / Duodenal Stricture / Duodenal ulcer - Patient has reported vomiting all of yesterday. No vomiting since 2 AM - Hemodynamically stable and afebrile - Physical does not reveal any abdominal tenderness - Imaging noted above - NG tube will be inserted in the ER; will c/w LIS thereafter - Will add Zofran PRN - Consulted gastroenterology and general surgery; appreciate their input Leukocytosis - Possibly 2/2 reactive etiology, less likely 2/2 infectious etiology - Patient remains afebrile - Will hold off on antibiotic therapy at this time Elevated Cr with some CKD3 - Cr baseline of 1.1-1.2 - Cr currently at 1.3 - Will start D5NS for gentle hydration while NPO Hypokalemia - Will supplement via IV route Alzheimers - Patients daughter reports that shes been getting more forgetful recently - Forgets conversations mid sentence HTN - BP elevated in the ER in the 170s - Will hold Lisinopril (re: NPO) - Will provide Labetalol IV OA DVT prophylaxis - Will start Heparin Vital Signs Vital Signs Date Time Temp Pulse Resp B/P (MAP) Pulse Ox O2 Delivery O2 Flow Rate FiO2 01/13/21 16:10 110 20 171/81 (111) 01/13/21 12:36 98.1 97 Room Air Laboratory Data Labs 24H Laboratory Tests 2 01/13/21 13:56: Immature Granulocyte % (Auto) 0.3, Neutrophils (%) (Auto) 74.2H, Lymphocytes (%) (Auto) 18.0L, Monocytes (%) (Auto) 7.1, Eosinophils (%) (Auto) 0.1, Basophils (%) (Auto) 0.3, Neutrophils # (Auto) 8.0, Lymphocytes # (Auto) 1.9, Monocytes # (Auto) 0.8, Eosinophils # (Auto) 0.0, Basophils # (Auto) 0.0, Nucleated Red Blood Cells % (auto) 0.0, Anion Gap 9, Glomerular Filtration Rate 39.3, Calcium Level 11.1H, Total Bilirubin 0.9, Direct Bilirubin 0.2, Aspartate Amino Transf (AST/SGOT) 21, Alanine Aminotransferase (ALT/SGPT) 31, Alkaline Phosphatase 116, Total Protein 8.5H, Albumin 3.5, Albumin/Globulin Ratio 0.7L, Lipase 130 01/13/21 17:26: Coronavirus (COVID-19)(PCR) NEGATIVE, Influenza Type A (RT-PCR) NEGATIVE, Influenza Type B (RT-PCR) NEGATIVE, Respiratory Syncytial Virus (PCR) NEGATIVE CBC/BMP Laboratory Tests 01/13/21 13:56 Home Medications Scheduled Lisinopril (Lisinopril) 40 Mg Tablet, 40 MG PO DAILY [Prevagen] , 1 CAP PO DAILY Scheduled PRN Tramadol HCl/Acetaminophen (Tramadol-Acetaminophn 37.5-325) 1 Tab Tab, 1 TAB PO DAILY PRN for PAIN LEVEL 1-5 Allergies Coded Allergies: Penicillins (Verified Allergy, Intermediate, rash, 01/13/21) KEISHA AGARWAL MD Jan 13, 2021 18:35
--- NOTE | 2021-01-13 18:37 | ECGEPIP ---
[facility] - ED Test Date: 2021-01-13 Pat Name: ARUN SHORT Department: Room: - Gender: Female Benefit Specialist: KEYENMANUEL : 1940 Requested By: Nisha Munoz Order Number: [id number] Reading MD: Kingston Nam Measurements Intervals [place] Rate: 104 P: 52 VA: 152 QRS: -55 QRSD: 90 T: 55 QT: 342 QTc: 449 Interpretive Statements Sinus tachycardia LEFT AXIS DEVIATION Left anterior fascicular block Moderate voltage criteria for LVH, may be normal variant ( R in aVL , Jasmeet product ) Possible Anterior infarct , age undetermined RATE CHANGE COMPARED TO 07/18/16 Electronically Signed on 01-13-2021 18:36:58 EDT by Kingston Nam
--- OUTSIDE RECORDS SUMMARY | 2021-01-13 18:40 | CCD ---
Author Author [facility] Organization [facility] Address Unknown Phone Unavailable Support Name Relationship Address Phone GETACHEW ARRINGTON Next Of Kin [address] [place] [address] RE Next Of Kin Unknown Unavailable THOMAS SHORT Next Of Kin [address] [place] [address] THOMAS SHORT [place], [place] Unavailable Re-disclosure Warning The records that [...] is protected by Article 27-F of the [place] Public Health law. If you continue you may have access to information: Regarding HIV / AIDS; Provided by facilities licensed or operated by the [place] Office of Mental Health; or Provided by the [place] Office for People With Developmental Disabilities. If such information is present, then the following [place] mandated warning applies: This information has been [...] law may result in a fine or assisted sentence or both. A general authorization for [...] Date Indications Data Source(s ) Unknown [address] [facility] [address] 11/26/2020 12:00:00 AM EDT eCW1 [facility] [place]) Unknown [address] [facility] [place] [address] 11/25/2020 12:00:00 AM EDT eCW1 [facility] Outpatient [address] [facility] [place] [address] 11/13/2020 12:00:00 AM EDT eCW1 [facility] Outpatient [address] [facility] [place] [address] 04/30/2020 12:00:00 AM EST eCW1 [facility] Outpatient [address] [facility] [place] [address] 12/26/2019 12:00:00 AM EDT eCW1 [facility]) Unknown [address] [facility] [place] [address] 12/26/2019 12:00:00 AM EDT [facility]CW1 [facility] Unknown [address] [facility] [place] [address] 12/12/2019 12:00:00 AM EDT eCW1 ([facility]) [facility] [address] [facility] [place] [address] 11/20/2019 12:00:00 AM EDT eCW1 ([facility]) Immunizations Vaccine Date Status Description Data Source(s) COVID-19 dose #2 given elsewhere Unspecified 04/26/2020 01:5 9:00 PM EST completed eCW1 [facility]) COVID-19 dose #2 given elsewhere Unspecified 04/26/2020 01:5 9:00 PM EST completed eCW1 ([facility]) COVID-19 dose #2 given elsewhere Unspecified 04/26/2020 01:5 9:00 PM EST completed eCW1 ([facility]) COVID-19 dose #2 given elsewhere Unspecified 04/26/2020 01:5 9:00 PM EST completed eCW1 ([facility]) COVID-19 VACCINE Moderna 04/26/2020 12:00:00 AM EST completed [facility] Vaccine Series Complete: YESThis Data wa s Submitted to [facility] Via [employer]. COVID-19 VACCINE, MRNA-1273, LNP-S (MODERNA)/PF 04/26/2020 1 2:00:00 AM EST completed [facility] COVID-19 dose #1 given elsewhere Unspecified 03/29/2020 06:4 1:00 AM EST completed eCW1 ([facility]) COVID-19 dose #1 given elsewhere Unspecified 03/29/2020 06:4 1:00 AM EST completed eCW1 ([facility]) COVID-19 dose #1 given elsewhere Unspecified 03/29/2020 06:4 1:00 AM EST completed eCW1 ([facility]) COVID-19 dose #1 given elsewhere Unspecified 03/29/2020 06:4 1:00 AM EST completed eCW1 ([facility]) COVID-19 VACCINE, MRNA-1273, LNP-S (MODERNA)/PF 03/29/2020 1 2:00:00 AM EST completed [facility] COVID-19 VACCINE Moderna 03/29/2020 12:00:00 AM EST completed [facility] Vaccine Series Complete: NOThis Data was Submitted to [facility] [employer]. influenza, recombinant, quadrIvalent,injectable, prese rvative free 12/26/2019 09:24:00 AM EDT completed eCW1 ([facility]) influenza, recombinant, quadrIvalent,injectable, prese rvative free 12/26/2019 09:24:00 AM EDT completed eCW1 ([facility]) influenza, recombinant, quadrIvalent,injectable, prese rvative free 12/26/2019 09:24:00 AM EDT completed eCW1 ([facility]) influenza, recombinant, quadrIvalent,injectable, prese rvative free 12/26/2019 09:24:00 AM EDT completed eCW1 ([facility]) influenza, recombinant, quadrIvalent,injectable, prese rvative free 12/26/2019 09:24:00 AM EDT completed eCW1 ([facility]) influenza, recombinant, quadrIvalent,injectable, prese rvative free 12/26/2019 09:24:00 AM EDT completed eCW1 ([facility]) Medications Medication Brand Name Start Date Product Form Dose Route Admi nistrative Instructions Pharmacy Instructions Status Indications Reaction Description Data Source(s) traMADol-Acetaminophen 325-37.5 MG UNK 11/26/2020 12:00:00 AM EDT active traMADol-Acetaminophen 325-37.5 MG eCW1 ([facility]) Insurance Providers Payer name Policy type / Coverage type Policy ID Covered republican ID Covered republican's relationship to allred Policy Allred Plan Information [facility] OPTIONS [id number] Medicare Railroad [employer] Medicare Primary [id number] Self [facility] Healthcare Options [facility] Part B [id number] Self [id number] Medicare Railroad [place] Medicare Primary [id number] Self [id number] [facility] Healthcare Options [facility] Part B [id number] Self ANS-Medicare Part B [id number] ANSI-Commercial [id number] ANSI-Commercial [id number] ANSI-Medicare Part B [id number] ANSI-Commercial [id number] ANSI-Medicare Part B [id number] ANSI-Commercial [id number] ANSI-Medicare Part B [id number] ANSI-Commercial [id number] ANSI-Medicare Part B [id number] ANSI-Medicare Part B [id number] ANSI-Commercial [id number] ANSI-Medicare Part B [id number] ANSI-Commercial [id number] ANSI-Commercial [id number] ANSI-Medicare Part B [id number] ANSI-Commercial [id number] ANSI-Medicare Part B [id number] ANSI-Commercial [id number] ANSI-Medicare Part B [id number] ANSI-Commercial [id number] ANSI-Medicare Part B [id number] ANS-Medicare Part B [id number] ANSI-Commercial [id number] [employer] CARE OPTIONS [id number] SP [id number] MEDICARE [id number] SP [id number] AARP O [id number] S [id number] [employer]RO[employer] MEDICARE C [id number] S [id number] MEDICARE C [id number] S [id number] Medicare Dme Supplies [facility] Part B [id number] Self [id number] [facility] Options [facility] Part B [id number] Self Medicare Railroad Medicare Primary [id number] Self MEDICARE [id number] SP [id number] [facility] Options [facility] Part B [id number] Self [employer] OPTIONS [id number] SP [id number] MEDICARE [id number] SP [id number] MEDICARE C [id number] S [id number] AARP O [id number] S [id number] Problems, Conditions, and Diagnoses Code Display Name Description Problem Type Effective Dates Data Source(s) M46.1 [id number] Sacroiliitis Problem 11/25/2020 12:00:00 AM EDT eCW1 ([facility]) Surgeries/Procedures Procedure Description Date Indications Data Source(s) Immunization: Flublok Quadrivalent (18 years & older) 0.5mL IM (Influenza) 12/26/2019 12:00:00 AM EDT eCW1 ([facility]) Results No Information Social History Code Duration Value Status Description Data Source(s ) Smoking 11/13/2020 12:00:00 AM EDT Never Smoker completed Never S moker eCW1 ([facility]) Smoking 11/13/2020 12:00:00 AM EDT Never Smoker completed Never S moker eCW1 ([facility]) Smoking 11/13/2020 12:00:00 AM EDT Never Smoker completed Never S moker eCW1 ([facility]) Smoking 04/30/2020 12:00:00 AM EST Never Smoker completed Never S moker eCW1 ([facility]) Smoking 12/26/2019 12:00:00 AM EDT Never Smoker completed Never S moker eCW1 ([facility]) Smoking 12/26/2019 12:00:00 AM EDT Never Smoker completed Never S moker eCW1 ([facility]) Vital Signs ID Date Data Source UNK Name Value Range Interpretation Code Description Data Source(s) Systolic blood pressure 120 mm[Hg] 120 mm[Hg] e CW1 ([facility]) Diastolic blood pressure 80 mm[Hg] 80 mm[Hg] eCW1 ([facility]) Body weight 184.12 [lb_av] 184.12 [lb_av] eCW1 ([facility]) Body temperature 98 [degF] 98 [degF] eCW1 ([facility]) Body mass index (BMI) [Ratio] 37.18 kg/m2 37.18 kg/m2 eCW1 ([facility]) Heart rate 75 /min 75 /min eCW1 ([facility]) Respiratory rate 18 /min 18 /min eCW1 ([facility]) Body height [in_i] eCW1 ([facility]) Body weight 198 [lb_av] 198 [lb_av] eCW1 ([facility]) Body height [in_i] eCW1 ([facility]) Body mass index (BMI) [Ratio] 39.99 kg/m2 39.99 kg/m2 eCW1 ([facility]) Heart rate 72 /min 72 /min eCW1 ([facility]) Respiratory rate 18 /min 18 /min eCW1 ([facility]) Body temperature 98 [degF] 98 [degF] eCW1 ([facility]) Systolic blood pressure 130 mm[Hg] 130 mm[Hg] e CW1 ([facility]) Diastolic blood pressure 80 mm[Hg] 80 mm[Hg] eCW1 ([facility]) Body weight 197 [lb_av] 197 [lb_av] eCW1 ([facility]) Body height [in_i] eCW1 ([facility]) Body mass index (BMI) [Ratio] 39.78 kg/m2 39.78 kg/m2 eCW1 ([facility]) Heart rate 68 /min 68 /min eCW1 ([facility]) Respiratory rate 18 /min 18 /min eCW1 ([facility]) Body temperature 98 [degF] 98 [degF] eCW1 ([facility]) Systolic blood pressure 114 mm[Hg] 114 mm[Hg] e CW1 ([facility]) Diastolic blood pressure 75 mm[Hg] 75 mm[Hg] eCW1 ([facility]) Patient Treatment Plan of Care Planned Activity Planned Date Details Description Data Source (s) traMADol-Acetaminophen 325-37.5 MG 11/26/2020 12:00:00 AM EDT eCW1 ([facility])
[2021-01-13] MEDS ORDERED: KCL 40MEQ IN D5/NS 1000ML 1,000 ML IV SCH ×2 (20:00→22:00)
[2021-01-13] MEDS: LABETALOL 100MG/20ML VIAL IV SCH (20:05)
[2021-01-13] MEDS: KCL 10MEQ/100ML SWI (KRUN) 10 MEQ in IV 1 EA IV SCH ×2 (20:06→22:09)
[2021-01-13] MEDS ORDERED: ACETAMINOPHEN *IV* 1,000 MG in IV 1 EA IV ONE (23:10)
[2021-01-14] MEDS: LABETALOL 100MG/20ML VIAL IV SCH ×4 (02:00→20:00)
[2021-01-14] MEDS: PANTOPRAZOLE 40MG VIAL (C9113 PER 1) IV SCH ×2 (05:58→18:31)
[2021-01-14] MEDS: HEPARIN SOD (PORCINE) 5000UNITS/ML 1ML VIAL/SYRINGE SC SCH ×3 (05:59→22:00)
[2021-01-14 06:50] LABS: BASO % 0.3 % (0.0-1.0); EOS % 0.5 % (0.0-3.0); HEMATOCRIT 40.4 % (36.0-47.0); HEMOGLOBIN 12.5 g/dl (12.0-15.5); LYMPH # 1.6 10^3/uL (1.5-5.0); LYMPH % 18.6 % (24.0-44.0); MEAN CORPUSCULAR HEMOGLOBIN 28.4 pg (27.0-33.0); MEAN CORPUSCULAR HGB CONC 30.9 g/dl (32.0-36.5); MEAN CORPUSCULAR VOLUME 91.8 fl (80.0-96.0); MONO # 0.5 10^3/uL (0.0-0.8); MONO % 6.3 % (2.0-8.0); NEUTROPHILS # 6.4 10^3/uL (1.5-8.5); PLATELET COUNT, AUTOMATED 290 10^3/uL (150-450); WHITE BLOOD COUNT 8.6 10^3/uL (4.0-10.0)
[2021-01-14 07:10] LABS: CALCIUM LEVEL 9.3 MG/DL (8.8-10.2); CREATININE FOR GFR 1.07 MG/DL (0.55-1.30); GLOMERULAR FILTRATION RATE 52.7 (>39); MAGNESIUM LEVEL 1.8 MG/DL (1.8-2.4); POTASSIUM SERUM 4.7 MEQ/L (3.5-5.1)
[2021-01-14] MEDS: D5W/0.9% SODIUM CHLORIDE 1,000 ML IV SCH (09:59)
--- NOTE | 2021-01-14 10:51 | IPNPDOC ---
Text Note Date of Service The patient was seen on 01/14/21. NOTE Subjective: Patient is a 80-year-old female with a PMHx of Alzheimers, Pyloric sphincter stenosis (s/p dilation x2), Duodenal Stricture, Duodenal Ulcer, HTN, OA, who presented to the ER with complaints of nausea and vomiting for all of yesterday. Patient was admitted to the hospital service for further evaluation and treatment. General surgery and gastroenterology were called on consultation. Patient was seen and examined at the bedside. Patient has not had any vomiting yesterday all day. Denies any chest pain or abdominal pain. Denies any diarrhea. Denies any shortness of breath or cough. Objective: Vitals (See below) General: Sitting up in bed and appears to be comfortable without any acute distress, AAOx3 HEENT: NC, AT CVS: +S1S2 Lungs: Fair air entry b/l, no wheezing, rales or rhonchi Abdomen: Soft, nondistended, nontender Extremities: No evidence of lower extremity edema Imaging: CT abdomen / pelvis 01/13: Findings involving the stomach and duodenum as described above. Possible gastric outlet obstruction cannot be ruled out by this exam. Other findings and chronic changes as described above. There is a new ground-glass nodule in the left lung base as described above. According to the revised Fleischner society criteria diagnostic contrast-enhanced CT examination of the chest is recommended. Assessment and plan: Nausea / Vomiting - likely 2/2 gastric outlet obstruction - Hx of Pyloric sphincter stenosis (s/p dilation x2) / Duodenal Stricture / Duodenal ulcer - Patient has reported vomiting all of 01/12 and stopped at 01/13 2AM; has not had any vomiting since that - Remains hemodynamically stable / afebrile - Physical does not reveal any abdominal tenderness - Imaging noted above - NG tube will be inserted in the ER; will c/w LIS thereafter - c/w Zofran PRN - Consulted gastroenterology and general surgery; appreciate their input - Discussed with General surgery this morning; will order upper GI series to evaluate for definitive obstruction s/p Leukocytosis - Possibly 2/2 reactive etiology, less likely 2/2 infectious etiology - Patient remains afebrile - Will continue to hold off on antibiotic therapy at this time CKD3 - Cr baseline of 1.1-1.2 - c/w gentle hydration while NPO s/p Hypokalemia Alzheimers - Patients daughter reports that shes been getting more forgetful recently - Forgets conversations mid sentence HTN - BP elevated in the ER in the 170s - s/p Lisinopril (re: NPO) - c/w Labetalol IV OA DVT prophylaxis - c/w Heparin Disposition: - Pending clinical improvement VS,Bailey, I+O VS, Mckennae, I+O Laboratory Tests 01/13/21 13:56 01/14/21 05:34 Vital Signs Date Time Temp Pulse Resp B/P (MAP) Pulse Ox O2 Delivery O2 Flow Rate FiO2 01/14/21 09:59 155/89 01/14/21 06:03 85 16 93 Room Air 01/14/21 00:30 96.7 I&O- Last 24 Hours up to 6 AM 01/14/21 06:00 Intake Total 1100 ml Balance 1100 ml KEISHA AGARWAL MD Jan 14, 2021 10:51
[2021-01-14] MEDS ORDERED: E-Z-PAQUE 96% w/w SUSP 176GM BTL As Ordered ONE (12:15)
[2021-01-14] MEDS ORDERED: E-Z-GAS II EFFERVESCENT PACKET (SODIUM BICARB./CITRIC ACID/SIMETHICONE) As Ordered ONE (12:15)
[2021-01-14] MEDS ORDERED: E-Z-HD 98% w/w 340GM SUSP BTL As Ordered ONE (12:16)
--- NOTE | 2021-01-14 17:28 | REP ---
INDICATION: Gastric outlet obstruction. COMPARISON: CT abdomen pelvis dated 01/13/2021 TECHNIQUE: This procedure was performed by SUZE Garcia, under the direct supervision of Dr. Javier. Images were reviewed with Dr. Javier prior to dictation. Liquid barium was given in the erect position. Additional liquid barium was given at the end of the examination in order to perform a small-bowel follow-through. FINDINGS: The gravity flow irrigator film shows a dilated stomach. The bowel gas pattern is nonspecific. The oral and pharyngeal stages of deglutition were unremarkable. Esophageal transport is prompt and efficient and there is no evidence of esophagitis, stricture, or mucosal ring. There is no evidence of a hiatal hernia. Minor tertiary contractions are seen within the esophagus. A dilated stomach is seen with retained food materials. These retained food materials make mucosal evaluation of the stomach limited. There is an irregularity and narrowing of the pylorus. This irregularity and narrowing is suspicious for neoplasm. A minimal amount of barium is able to make it through the narrowing. The visualized portion of the duodenal lyeva are normally outlined. The mucosal folds are smooth and regular. There is no duodenitis, peptic ulcer disease or neoplasm. There is a diverticulum seen in the transverse portion of the duodenum. Due to the irregularity and narrowing at the gastric outlet little barium is making it through the small bowel. Full and proper evaluation of the small bowel is unable to be obtained due to this. If further evaluation of the small bowel is desired a follow-up KUB in the a.m. is recommended. IMPRESSION: A dilated stomach is seen with retained food materials. These retained food materials make mucosal evaluation of the stomach limited. There is an irregularity and narrowing at the pylorus. This irregularity and narrowing is suspicious for neoplasm. A minimal amount of barium material is making it through the narrowing. There is a diverticulum seen in the transverse portion of the duodenum. Full and proper evaluation of the small bowel is unable to be obtained due to the limited amount of barium making it through the narrowed gastric outlet. If further evaluation of the small bowel and amount of gastric emptying is desired a follow-up KUB in the a.m. is recommended. 0.1 minutes of fluoroscopy time was utilized for this procedure. Some fluoroscopic images are performed with last image hold technology. These images require no additional radiation. <Electronically signed by Kayley Pace > 01/14/21 [id number] <Electronically signed by Leander Javier > 01/14/21 [id number]
[2021-01-14 18:11] VITALS: BP 158/77
--- NOTE | 2021-01-14 19:14 | CR ---
CONSULTATION DATE: 01/14/2021 REASON FOR CONSULTATION: Nausea and vomiting with history of pyloric narrowing. HISTORY OF PRESENT ILLNESS: The patient is a 80-year-old woman who presented to the Emergency Department at about 12:30 in the afternoon on the 13 of January with a history of nausea and vomiting the previous day. The patient had reported multiple episodes of vomiting on the 12 of January. Her is present at the bedside today and reports that she threw up several times quite a bit. She would try sips of liquids and at one point she tried a small amount of scrambled egg and it all came back up. Her daughter encouraged them to come to the Emergency Department and she presented on the 13 of January for evaluation. She has a history of prior duodenal ulcer disease and had previously been found to have a narrowing of the pyloric channel. Apparently she had undergone dilation of this with a balloon dilator [place] She had undergone upper endoscopy most recently in about 2015. This was by Dr. Medel, who identified a narrowing but did not attempt any dilation. She was also seen in [address] Rodriguez of General Surgery, who had evaluated her and found her to have little enough in the way of symptoms that he did not recommend any surgery, though he did refer her to a Dr. Akbar in [place]. The reports that they saw Dr. Akbar three times but that they declined any surgery at that point. She has done well over the ensuing 5 years. The patient was admitted yesterday and apparently declined a nasogastric tube. She does have a history of some dementia. She has not had any further nausea or vomiting since presentation to the hospital, now approximately 24 hours ago. She is not complaining of any abdominal pain or nausea. ALLERGIES: Reported to Penicillins. MEDICATIONS: Prior to admission include: 1. Lisinopril. 2. Tramadol. 3. Acetaminophen. 4. Prevagen. MEDICAL HISTORY: The patient's past medical history is significant for: 1. Dementia. 2. History of some pyloric channel narrowing. 3. She has had a duodenal ulcer. 4. Hypertension. 5. Osteoarthritis. SURGICAL HISTORY: The patient's past surgical history is significant for: 1. An appendectomy in the distant past. 2. She has had a cholecystectomy. 3. Surgery for an ectopic . 4. Tonsillectomy. FAMILY HISTORY: Noncontributory. SOCIAL HISTORY: The patient does not smoke nor drink any alcohol currently. REVIEW OF SYSTEMS: The patient and her both report that she has been taking a regular diet and deny any recent problems with nausea, vomiting or other abdominal pain. The patient was examined in the emergency holding bed where she has remained since admission. Vital signs show that she has been afebrile since admission with a pulse in the 60's to 70's. Her blood pressure has been acceptable. PHYSICAL EXAMINATION: GENERAL APPEARANCE: The patient is lying quietly propped up in the hospital bed. Her is present at the bedside. The patient is alert and responsive. She is not entirely oriented or able to give a cogent story of what brought her to the Emergency Department though she does remember some facts of her health history including her appendectomy as a child. SKIN: Warm and dry. HEENT: Sclerae are anicteric. Mucous membranes appear moist. HEART: Regular rate and rhythm. LUNGS: Clear to auscultation. ABDOMEN: Mildly obese. She has some abdominal scarring consistent with her prior surgery. She has active bowel sounds. The abdomen is soft and nontender throughout without appreciable mass. LABORATORY STUDIES: Today white count of 9, hemoglobin 12, hematocrit 40 and a platelet count of 290,000. Differential count shows 74% neutrophils, 19% lymphocytes and 6% monocytes. Chemistry profile shows a sodium of 140, potassium 4.7, chloride 112, CO2 of 22, BUN of 21, creatinine 1.07 and a glucose of 103. Yesterday she had an elevated calcium at 11.1 with normal liver function tests. She had a lipase of 130. IMAGING: The patient had a CT scan yesterday that was interpreted by the radiologist as showing a mildly to moderately distended stomach with some fluid and gas within the duodenum, but a suggestion of some narrowing of the duodenal sweep. The small bowel appeared normal. The radiologist reported that a gastric outlet obstruction could not be ruled out by that exam. IMPRESSION: The patient is a 80-year-old woman with a long history of some narrowing of the pyloric channel. She most recently had an endoscopic exam in [address] Medel. Since then she has lived for 5 years without any reports of significant intolerance to foods, nausea or vomiting. She has been on a regular diet. I suspect that her current episode is at least as likely to be from some mild enteritis or viral infection as from any sort of pyloric channel narrowing. She has remained asymptomatic since presenting to the hospital and has had no further vomiting. RECOMMENDATIONS: I would recommend that the patient have a contrast swallow to assess gastric emptying. If her stomach empties acceptably, then I would advance her to a clear liquid diet and if the liquids are tolerated, I would advance her diet as tolerated. I suspect that she will tolerate a diet and be able to be discharged home on the diet that she was taking prior to this single episode. Only if she has a recurrence of her symptoms, would I recommend having Gastroenterology proceed with an endoscopy. I explained this to the patient and her , and I called Dr. Rivers and made him aware of my recommendations.
[2021-01-14 20:00] VITALS: BP 166/72
[2021-01-15] VITALS: BP 168/84
[2021-01-15] MEDS: LABETALOL 100MG/20ML VIAL IV SCH ×4 (02:00→20:00)
[2021-01-15 04:00] VITALS: BP 146/67
[2021-01-15] MEDS: PANTOPRAZOLE 40MG VIAL (C9113 PER 1) IV SCH ×2 (05:23→18:45)
[2021-01-15] MEDS: HEPARIN SOD (PORCINE) 5000UNITS/ML 1ML VIAL/SYRINGE SC SCH ×3 (05:24→21:35)
[2021-01-15 05:50] LABS: BASO % 0.5 % (0.0-1.0); EOS # 0.1 10^3/uL (0.0-0.5); HEMOGLOBIN 11.9 g/dl (12.0-15.5); LYMPH # 1.2 10^3/uL (1.5-5.0); LYMPH % 20.6 % (24.0-44.0); MEAN CORPUSCULAR HEMOGLOBIN 28.2 pg (27.0-33.0); MEAN CORPUSCULAR HGB CONC 30.5 g/dl (32.0-36.5); MEAN CORPUSCULAR VOLUME 92.4 fl (80.0-96.0); MONO # 0.3 10^3/uL (0.0-0.8); MONO % 5.7 % (2.0-8.0); NEUTROPHILS # 4.2 10^3/uL (1.5-8.5); NEUTROPHILS % 70.9 % (36.0-66.0); PLATELET COUNT, AUTOMATED 237 10^3/uL (150-450); RED BLOOD COUNT 4.22 10^6/uL (4.00-5.40)
[2021-01-15 06:12] LABS: CALCIUM LEVEL 9.4 MG/DL (8.8-10.2); CREATININE FOR GFR 1.01 MG/DL (0.55-1.30); GLOMERULAR FILTRATION RATE 56.3 (>39); MAGNESIUM LEVEL 1.8 MG/DL (1.8-2.4); POTASSIUM SERUM 4.2 MEQ/L (3.5-5.1)
[2021-01-15] MEDS ORDERED: LIDOCAINE 2% 100MG/5ML SDV (FOR ANES.) As Ordered ONE (07:02)
[2021-01-15] MEDS ORDERED: propofoL 200 MG/20 ML VIAL As Ordered ONE (07:02)
[2021-01-15 08:00] VITALS: BP 189/98
[2021-01-15] MEDS ORDERED: LORazepam 2 MG/ML VIAL IV ONE (10:55)
[2021-01-15 12:00] VITALS: BP 179/76
--- NOTE | 2021-01-15 13:00 | IPNPDOC ---
Text Note Date of Service The patient was seen on 01/15/21. NOTE Subjective: Patient is a 80-year-old female with a PMHx of Alzheimers, Pyloric sphincter stenosis (s/p dilation x2), Duodenal Stricture, Duodenal Ulcer, HTN, OA, who presented to the ER with complaints of nausea and vomiting for all of yesterday. Patient was admitted to the hospital service for further evaluation and treatment. General surgery and gastroenterology were called on consultation. Patient was seen and examined at the bedside. Patient appears to be very tearful and doesn't quite remember why she is in the hospital. I have assured her that she is here because of nausea/vomiting that she had experienced a few days ago. . Patient's has come to the bedside for emotional support. Patient with a mild headache but denies. Has not experience any further nausea, vomiting, abdominal pain, diarrhea, or urinary discomfort. I have advised the patient and her the necessity of having an NG tube placed. However, both have adamantly refused. Reported "don't want to subject her to anything that's uncomfortable." I expressed to them that there is a concern that there are still food content within the stomach that can make the procedure difficult and/or dangerous given the risk of aspiration; has verbalized understanding. Objective: Vitals (See below) General: Patient is laying in bed and appears to be tearful, awake and alert HEENT: Normocephalic and atraumatic CVS: +S1S2 Lungs: Air entry appears to be fair bilaterally without any auscultated evidence of wheezing, crackles or rhonchi Abdomen: Abdomen remains soft without any distention or tenderness Extremities: No evidence of lower extremity edema Imaging: CT abdomen / pelvis 01/13: Findings involving the stomach and duodenum as described above. Possible gastric outlet obstruction cannot be ruled out by this exam. Other findings and chronic changes as described above. There is a new ground-glass nodule in the left lung base as described above. According to the revised Fleischner society criteria diagnostic contrast-enhanced CT examination of the chest is recommended. Upper GI series / SB follow through 01/14: A dilated stomach is seen with retained food materials. These retained food materials make mucosal evaluation of the stomach limited. There is an irregularity and narrowing at the pylorus. This irregularity and narrowing is suspicious for neoplasm. A minimal amount of barium material is making it through the narrowing. There is a diverticulum seen in the transverse portion of the duodenum. Full and proper evaluation of the small bowel is unable to be obtained due to the limited amount of barium making it through the narrowed gastric outlet. If further evaluation of the small bowel and amount of gastric emptying is desired a follow-up KUB in the a.m. is recommended. 0.1 minutes of fluoroscopy time was utilized for this procedure. Some fluoroscopic images are performed with last image hold technology. These images require no additional radiation. Assessment and plan: Nausea / Vomiting - likely 2/2 gastric outlet obstruction - Hx of Pyloric sphincter stenosis (s/p dilation x2) / Duodenal Stricture / Duodenal ulcer - Patient has not had any vomiting episodes while inpatient - She continues to remain hemodynamically stable and afebrile - No abdominal tenderness - Imaging noted above - Patient's has refused NGT tube; aware of risks of such decisions; worsening of condition / aspiration - c/w Zofran PRN - GI / General surgery on consultation; appreciate their input - Plan for EGD later today s/p Leukocytosis - Possibly 2/2 reactive etiology, less likely 2/2 infectious etiology - Patient remains afebrile - Will continue to hold off on antibiotic therapy at this time CKD3 - Cr baseline of 1.1-1.2 - c/w gentle hydration while NPO s/p Hypokalemia Alzheimers - Patients daughter reports that shes been getting more forgetful recently - Forgets conversations mid sentence HTN - BP remains stable - s/p Lisinopril (re: NPO) - c/w Labetalol IV OA DVT prophylaxis - c/w Heparin Disposition: - Pending clinical improvement Bailey AUGUST I+O Bailey AUGUST I+O Laboratory Tests 01/15/21 05:16 Vital Signs Date Time Temp Pulse Resp B/P (MAP) Pulse Ox O2 Delivery O2 Flow Rate FiO2 01/15/21 12:00 97.1 62 18 179/76 (110) 93 Room Air I&O- Last 24 Hours up to 6 AM 01/15/21 05:59 Intake Total 1490 ml Balance 1490 ml KEISHA AGARWAL MD Jan 15, 2021 13:00
--- NOTE | 2021-01-15 13:06 | IPNPDOC ---
Text Note Date of Service The patient was seen on 01/15/21. NOTE General surgery Dr. Leslie The patient is a 80-year-old female with history of pyloric narrowing, seen in the past by Dr. Rodriguez and Dr. Akbar in [place], they had declined surgery with Dr. Akbar at that time. The patient was admitted 01/13/2021 with nausea and vomiting, NG tube was ordered but the patient apparently declined. This morning, the patient is sitting on the side of the bed. She is able to provide limited history, she states she is waiting for her to come. She denies nausea or vomiting currently. Afebrile Heart rate 62, respiratory rate 18, blood pressure 179/76, 93% room air. The patient is awake and alert, she is sitting on the side of the bed. Respirations are nonlabored, no wheezing S1-S2 regular rate rhythm Abdomen soft, nontender WBC 6.0, hemoglobin 11.9. UGI SBFT IMPRESSION: A dilated stomach is seen with retained food materials. These retained food materials make mucosal evaluation of the stomach limited. There is an irregularity and narrowing at the pylorus. This irregularity and narrowing is suspicious for neoplasm. A minimal amount of barium material is making it through the narrowing. There is a diverticulum seen in the transverse portion of the duodenum. Full and proper evaluation of the small bowel is unable to be obtained due to the limited amount of barium making it through the narrowed gastric outlet. If further evaluation of the small bowel and amount of gastric emptying is desired a follow-up KUB in the a.m. is recommended. 0.1 minutes of fluoroscopy time was utilized for this procedure. Some fluoroscopic images are performed with last image hold technology. These images require no additional radiation. <Electronically signed by Kayley Pace > Assessment/plan History of pyloric narrowing, nausea/vomiting. The patient is reviewed and examined as per Dr. Leslie this morning. The patient had declined NG tube on admission. The patient has previously declined any surgical intervention with Dr. Akbar Last EGD in [address] Medel Upper GI 01/14/2021 indicated there was an irregularity and narrowing at the pylorus, the irregularity and narrowing was suspicious for neoplasm. Minimal amount of barium material which is making it through the narrowing. As previously discussed, possibly consider EGD with gastroenterology to further evaluate. Dr. Leslie began to discuss this with the patient however she states she cannot remember and she is waiting for her . If not proceeding with EGD as per gastroenterology possibly consider trial of clear liquids. VS,Fishbone, I+O VS, Fishbone, I+O Laboratory Tests 01/15/21 05:16 Vital Signs Date Time Temp Pulse Resp B/P (MAP) Pulse Ox O2 Delivery O2 Flow Rate FiO2 01/15/21 12:00 97.1 62 18 179/76 (110) 93 Room Air I&O- Last 24 Hours up to 6 AM 01/15/21 06:00 Intake Total 1610 ml Balance 1610 ml Ciarra Reyes Jan 15, 2021 13:06
[2021-01-15] MEDS: D5W/0.9% SODIUM CHLORIDE 1,000 ML IV SCH (14:18)
[2021-01-15 14:19] VITALS: BP 154/72
[2021-01-15] MEDS ORDERED: dexameTHASONE 4 MG/ML 1ML VIAL (J1100 PER 1MG) As Ordered ONE (15:30)
[2021-01-15] MEDS ORDERED: SUGAMMADEX SODIUM 500 MG/5 ML VIAL (BRIDION) As Ordered ONE (15:30)
[2021-01-15] MEDS ORDERED: ONDANSETRON 4MG/2ML VIAL As Ordered ONE ×2 (15:30→16:03)
[2021-01-15] MEDS ORDERED: ROCURONIUM BROMIDE 50 MG/5 ML VIAL As Ordered ONE (15:30)
--- NOTE | 2021-01-15 15:47 | CR.PDOC ---
General Date of Consultation: Jan 15, 2021 Referring Provider: KEISHA AGARWAL MD Attending Physician: POLI DELEON MD Consultation Referring physician / PCP : Dr. Agarwal. Reason for consult: Nausea and vomiting and suspected gastric outlet obstruction. HPI: 80 year-old female patient with Alzheimers, ( alert and awake and answers simple questions but no short term memory), history of Pyloric sphincter stenosis (s/p dilation x2 last more than 10 years ago in [place], last EGD in [address] Medel no obstruction, prior Duodenal Stricture, Duodenal Ulcer, HTN, OA, who presented to the ER with complaints of nausea and vomiting. Patient had CT abdomen which showed dilated stomach and Surgery and Gi were consulted for the same. s accompanied by her daughter who was present at the bedside. Patient is a poor historian and her daughter notes that she is beginning to have Alzheimers. Patient reported that all of yesterday she was vomiting greater than 10 episodes without blood. Patient reports some tightness involving the lower part of her chest radiating throughout her sides into her back. Her last meal was yesterday. Patient denies any shortness of breath or cough. Denies any diarrhea or constipation. Reports her last bowel movement was yesterday. Denies any urinary discomfort. Patient reports that she experiences chills. With questionable subjective fever at home Pertinent negative GI symptoms: Patient denies nausea, vomiting, diarrhea, abdominal pain, loss of appetite, early satiety or unintentional weight loss, hematemesis, melena or hematochezia. Patient reports regular bowel movements. Review of Systems: GI: as stated above CVS: No chest pain, No palpitations, No leg swelling RS: No Shortness of breath, No Wheezing APPLICATION CONSULTANT: No loss of consciousness, No focal motor weakness., Hematology: No easy bruising, No gum bleeding, Musculoskeletal: No joint pain, ambulating well. : No blood inurine, No burning sensation of the urine ENT: No ear discharge/ pain, No dysphagia. Eyes: No photophobia. Skin: No rash Home medications: reviewed. No Plavix and No anticoagulants Medical h/o: As above. Surgical h/o: None on abdomen. Social h/o: Denies Alcohol, smoking, IVDA/ drugs. Family h/o of GI cancers - None Prior Endoscopies: None in [facility]. --- EGD --- Colonoscopy Prior GI evaluation: None in [facility] Exam: Vitals: reviewed General: Alert and oriented x 3, not in acute distress HEENT: No pallor, no icterus. Normal oropharynx, NO cervical lymphadenopathy. Chest: symmetric with bilateral air entry, CVS: S1, S2 heard, Abdomen: non-distended, soft, non-tender, no rigidity or guarding, no palpable masses, normal bowel sounds heard. Rectal exam: Patient refused / Deferred at this time in view of scheduled colonoscopy. Extremities: pulses palpable, no pedal edema, APPLICATION CONSULTANT: no focal motor or sensory deficits. Moves all extremities Skin: no rash. Labs: reviewed. HCV screening indicated ordered / done OR Not indicated due to age. Imaging: none / reviewed. Impression: -- Recommendations: -- Patient educated about the prior test results and all questions answered. -- NPO for now. -- Follow surgery recommendations. -- Will schedule for EGD with possible dilation of the gastric outlet and biopsies. Patient's next of kin and health care proxy ( ) is educated about the procedure, indications, risks (including but not limited to bleeding, infection, perforation, anesthesia risks, including ), benefits and all alternatives including conservative measures without intervention. Patient verbalized understanding and consented for the procedure. -- Please follow operative note for post procedure recommendations. -- Plan of care educated to patient and patient verbalized understanding and agreed. All questions answered. -- Recommendations communicated to primary team. Patient to follow with PCP upon discharge for routine medical care. Vital Signs/I&O Vital Signs Date Time Temp Pulse Resp B/P (MAP) Pulse Ox O2 Delivery O2 Flow Rate FiO2 01/15/21 14:19 59 154/72 (99) 01/15/21 12:00 97.1 18 93 Room Air I&O- Last 24 Hours up to 6 AM 01/15/21 06:00 Intake Total 1610 ml Balance 1610 ml Laboratory Data Labs 24H Laboratory Tests 2 01/15/21 05:16: Immature Granulocyte % (Auto) 0.3, Neutrophils (%) (Auto) 70.9H, Lymphocytes (%) (Auto) 20.6L, Monocytes (%) (Auto) 5.7, Eosinophils (%) (Auto) 2.0, Basophils (%) (Auto) 0.5, Neutrophils # (Auto) 4.2, Lymphocytes # (Auto) 1.2L, Monocytes # (Auto) 0.3, Eosinophils # (Auto) 0.1, Basophils # (Auto) 0.0, Nucleated Red Blood Cells % (auto) 0.0, Anion Gap 9, Glomerular Filtration Rate 56.3, Calcium Level 9.4, Magnesium Level 1.8 CBC/BMP Laboratory Tests 01/15/21 05:16 Allergies Coded Allergies: Penicillins (Verified Allergy, Intermediate, rash, 01/13/21) Home Medications Scheduled Lisinopril (Lisinopril) 40 Mg Tablet, 40 MG PO DAILY, (Reported) [Prevagen] , 1 CAP PO DAILY, (Reported) Scheduled PRN Tramadol HCl/Acetaminophen (Tramadol-Acetaminophn 37.5-325) 1 Tab Tab, 1 TAB PO DAILY PRN for PAIN LEVEL 1-5, (Reported) POLI DELEON MD Jan 15, 2021 15:47
[2021-01-15] MEDS ORDERED: LABETALOL 100MG/20ML VIAL As Ordered ONE (16:03)
--- NOTE | 2021-01-15 16:58 | ROOR ---
Patient Name: Sabrina Oliveira Procedure Date: 01/15/2021 3:36 PM Date of : 1940 Age: 80 Room: [facility] Gender: Female Note Status: Finalized Procedure: Upper GI endoscopy Indications: For therapy of prepyloric stenosis, Nausea with vomiting Providers: Emmett Richey MD Referring MD: 2. Inpatient 2. Inpatient, Iam Guerrero MD Requesting Provider: Medicines: Monitored Anesthesia Care Complications: No immediate complications. Procedure: Pre-Anesthesia Assessment: - Prior to the procedure, a History and Physical was performed, and patient medications and allergies were reviewed. The patient is competent. The risks and benefits of the procedure and the sedation options and risks were discussed with the patient. All questions were answered and informed consent was obtained. Patient identification and proposed procedure were verified by the physician, the nurse and the anesthesiologist in the procedure room. Mental Status Examination: alert and oriented. Airway Examination: normal oropharyngeal airway and neck mobility. Respiratory Examination: clear to auscultation. CV Examination: normal. Prophylactic Antibiotics: The patient does not require prophylactic antibiotics. Prior Anticoagulants: The patient has taken no previous anticoagulant or antiplatelet agents. ASA Grade Assessment: II - A patient with mild systemic disease. After reviewing the risks and benefits, the patient was deemed in satisfactory condition to undergo the procedure. The anesthesia plan was to use monitored anesthesia care (MAC). Immediately prior to administration of medications, the patient was re-assessed for adequacy to receive sedatives. The heart rate, respiratory rate, oxygen saturations, blood pressure, adequacy of pulmonary ventilation, and response to care were monitored throughout the procedure. The physical status of the patient was re-assessed after the procedure. The Endoscope was introduced through the mouth, and advanced to the third part of duodenum. The upper GI endoscopy was accomplished without difficulty. The patient tolerated the procedure well. Findings: LA Grade B (one or more mucosal breaks greater than 5 mm, not extending between the tops of two mucosal folds) esophagitis with no bleeding was found in the distal esophagus. One nearly obstructing (greater than 90% obstructed) non-bleeding cratered gastric ulcer of moderate to significant severity with a clean ulcer base (Rich Class III) was found in the prepyloric region of the stomach. The lesion was 15 mm in largest dimension. Biopsies were taken with a cold forceps for histology. Biopsies were taken with a cold forceps for Helicobacter pylori testing. Verification of patient identification for the specimen was done by the physician and nurse using the patient's name, date and medical record number. Estimated blood loss was minimal. A benign-appearing, intrinsic severe stenosis was found in the prepyloric region of the stomach. This was non-traversed. A TTS dilator was passed through the scope. Dilation with a 12-13.5-15 mm balloon dilator was performed to 15 mm. The dilation site was examined following endoscope reinsertion and showed mild mucosal disruption, moderate improvement in luminal narrowing, no bleeding and no perforation. The examined duodenum was normal. Impression: - LA Grade B reflux esophagitis. - Partially obstructing non-bleeding gastric ulcer with a clean ulcer base (Rich Class III). Biopsied. - Gastric stenosis was found in the prepyloric region of the stomach. Dilated. - Normal examined duodenum. Recommendation: - Patient has a contact number available for emergencies. The signs and symptoms of potential delayed complications were discussed with the patient. Return to normal activities tomorrow. Written discharge instructions were provided to the patient. - Full liquid diet for 1 day, then advance as tolerated to mechanical soft diet. - Continue present medications. - Use Protonix (pantoprazole) 40 mg PO twice daily - to be taken in morning (1/2 hour before breakfast) and at bedtime ( atleast 3 hours after last meal) for 12 weeks. - Use sucralfate suspension 1 gram PO QID for 4 weeks. - Await pathology results. - If Biopsy shows H. pylori will need therapy with antibiotic course.. - Repeat upper endoscopy in 6 months to check healing and to evaluate the response to therapy. - Return to GI clinic in [facility] (address: [address] [place] [address], [address] [place] [address], [place], [place],[address]) in 4 -- 6 weeks. Please call GI clinic @ [phone] for apppointment date and time. - Return to primary care physician. Procedure Code(s): --- Professional --- 45759, Esophagogastroduodenoscopy, flexible, transoral; with dilation of gastric/duodenal stricture(s) (eg, balloon, bougie) 08630, 59, Esophagogastroduodenoscopy, flexible, transoral; with biopsy, single or multiple Diagnosis Code(s): --- Professional --- K21.0, Gastro-esophageal reflux disease with esophagitis K25.9, Gastric ulcer, unspecified as acute or chronic, without hemorrhage or perforation K31.1, Adult hypertrophic pyloric stenosis K31.89, Other diseases of stomach and duodenum R11.2, Nausea with vomiting, unspecified CPT copyright 2019 [employer]. All rights reserved. The codes documented in this report are preliminary and upon certified medical coder review may be revised to meet current compliance requirements. Emmett Richey MD Emmett Richey MD 01/15/2021 4:58:06 PM Electronically signed by Emmett Richey MD Number of Addenda: 0 Note Initiated On: 01/15/2021 3:36 PM Estimated Blood Loss: Estimated blood loss was minimal.
[2021-01-15 19:42] VITALS: BP 126/80
[2021-01-15] MEDS: SUCRALFATE SUSP 1GM/10ML UD PO SCH (21:35)
[2021-01-16] VITALS: BP 128/60
[2021-01-16 02:00] VITALS: BP 130/80
[2021-01-16] MEDS: LABETALOL 100MG/20ML VIAL IV SCH ×2 (02:00→08:00)
[2021-01-16 04:00] VITALS: BP 137/67
[2021-01-16 04:06] LABS: BASO % 0.1 % (0.0-1.0); EOS % 0.1 % (0.0-3.0); HEMATOCRIT 39.4 % (36.0-47.0); HEMOGLOBIN 12.1 g/dl (12.0-15.5); LYMPH % 12.7 % (24.0-44.0); MEAN CORPUSCULAR HEMOGLOBIN 28.4 pg (27.0-33.0); MEAN CORPUSCULAR HGB CONC 30.7 g/dl (32.0-36.5); MEAN CORPUSCULAR VOLUME 92.5 fl (80.0-96.0); MONO # 0.4 10^3/uL (0.0-0.8); NEUTROPHILS # 6.3 10^3/uL (1.5-8.5); PLATELET COUNT, AUTOMATED 242 10^3/uL (150-450); RED BLOOD COUNT 4.26 10^6/uL (4.00-5.40); WHITE BLOOD COUNT 7.7 10^3/uL (4.0-10.0)
[2021-01-16 04:26] LABS: CALCIUM LEVEL 9.1 MG/DL (8.8-10.2); CREATININE FOR GFR 1.07 MG/DL (0.55-1.30); GLOMERULAR FILTRATION RATE 52.7 (>39); MAGNESIUM LEVEL 1.6 MG/DL (1.8-2.4); POTASSIUM SERUM 4.2 MEQ/L (3.5-5.1)
[2021-01-16] MEDS: HEPARIN SOD (PORCINE) 5000UNITS/ML 1ML VIAL/SYRINGE SC SCH (05:31)
[2021-01-16] MEDS: PANTOPRAZOLE 40MG VIAL (C9113 PER 1) IV SCH (05:31)
[2021-01-16] MEDS ORDERED: MAG SULF 1GM/100ML (MAG RUN) 1 GM in IV 1 EA IV ONE (06:45)
[2021-01-16] MEDS: SUCRALFATE SUSP 1GM/10ML UD PO SCH (07:04)
[2021-01-16 08:07] VITALS: BP 138/67
[2021-01-16] MEDS ORDERED: lisinopriL 40 MG TAB PO SCH (09:00)
[2021-01-16] MEDS ORDERED: SUCR1ORA PO ×2 (10:24→11:09)
[2021-01-16] MEDS ORDERED: PANT40TA29 PO ×2 (10:24→11:09)
[2021-01-16 12:09] VITALS: BP 121/58
--- NOTE | 2021-01-16 13:42 | DS.PDOC ---
Discharge Summary General Date of Admission Jan 13, 2021 at 18:25 Date of Discharge 01/16/2021 Discharge Summary PROCEDURES PERFORMED DURING STAY: EGD on 01/[address] Richey ADMITTING DIAGNOSES / DISCHARGE DIAGNOSES: Nausea / Vomiting - likely 2/2 gastric outlet obstruction s/p Leukocytosis - Possibly 2/2 reactive etiology, less likely 2/2 infectious etiology CKD3 s/p Hypokalemia Alzheimers HTN OA DVT prophylaxis COMPLICATIONS/CHIEF COMPLAINT: Nausea / Vomiting HISTORY OF PRESENT ILLNESS: Patient is a 80-year-old female with a PMHx of Alzheimers, Pyloric sphincter stenosis (s/p dilation x2), Duodenal Stricture, Duodenal Ulcer, HTN, OA, who presented to the ER with complaints of nausea and vomiting for all of yesterday. Patient was admitted to the hospital service for further evaluation and treatment. General surgery and gastroenterology were called on consultation. Patient was seen and examined at the bedside. Patient doesn't recall any of the conversations we have had yesterday. This morning patient appears to be cooperative and cheerful. She denies any significant pain. Unsure of exactly when she is in the hospital. Denies any nausea, vomiting, abdominal discomfort. Denies any cough or shortness of breath. Patient has been tolerating diet. HOSPITAL COURSE: Nausea / Vomiting - likely 2/2 gastric outlet obstruction - Hx of Pyloric sphincter stenosis (s/p dilation x2) / Duodenal Stricture / Duodenal ulcer - Has been tolerating advanced diet - Afebrile / Hemodynamically stable - No abdominal tenderness - Imaging noted above - s/p EGD and biopsy on 01/15 - c/w Zofran PRN - c/w Protonix and Carafate on discharge - c/w Pureed diet on discharge - GI / General surgery on consultation; outpatient follow-up (and biopsy results review) within the next 7 days s/p Leukocytosis - Possibly 2/2 reactive etiology, less likely 2/2 infectious etiology - Patient remains afebrile - Will continue to hold off on antibiotic therapy at this time CKD3 - Cr baseline of 1.1-1.2 - c/w gentle hydration while NPO s/p Hypokalemia Alzheimers - Patients daughter reports that shes been getting more forgetful recently and forgets conversations that have happened earlier - Patient reported yesterday, questionable thoughts that "she wished she was " - This morning patient has no recollection of the conversation before - She denies any suicidal thoughts. Denies any thoughts of harming herself; she reports that she's happily it and would not ever consider doing that - Will DC beside sitter and suicidal precautions; Discussed with Dr. Cook, Psychiatry - Patient lives with her provides 04/10 care - Will have outpatient follow-up with primary care provider HTN - BP remains stable - s/p Labetalol IV - c/w Lisinopril (re: NPO) OA DVT prophylaxis - c/w Heparin DISCHARGE MEDICATIONS: Please see below. ALLERGIES: Please see below. PHYSICAL EXAMINATION ON DISCHARGE: Vitals (See below) General: Patient is laying in bed, appears to be cheerful, not in any acute distress, awake and alert HEENT: NC and AT CVS: +S1S2 Lungs: There appears to be fair air entry bilaterally without any evidence of wheezing, crackles or rhonchi Abdomen: Remains soft without any distention or tenderness Extremities: No edema LABORATORY DATA: Please see below. IMAGING: CT abdomen / pelvis 01/13: Findings involving the stomach and duodenum as described above. Possible gastric outlet obstruction cannot be ruled out by this exam. Other findings and chronic changes as described above. There is a new ground-glass nodule in the left lung base as described above. According to the revised Fleischner society criteria diagnostic contrast-enhanced CT examination of the chest is recommended. Upper GI series / SB follow through 01/14: A dilated stomach is seen with retained food materials. These retained food materials make mucosal evaluation of the stomach limited. There is an irregularity and narrowing at the pylorus. This irregularity and narrowing is suspicious for neoplasm. A minimal amount of barium material is making it through the narrowing. There is a diverticulum seen in the transverse portion of the duodenum. Full and proper evaluation of the small bowel is unable to be obtained due to the limited amount of barium making it through the narrowed gastric outlet. If further evaluation of the small bowel and amount of gastric emptying is desired a follow-up KUB in the a.m. is recommended. 0.1 minutes of fluoroscopy time was utilized for this procedure. Some fluoroscopic images are performed with last image hold technology. These images require no additional radiation. ACTIVITY: [As tolerated]. DISCHARGE PLAN: Follow-up with primary provider and gastroenterology within the next 7 days Remain compliant with treatment plan and medications Return to ER if you experience any problems DISPOSITION: Home Health Service. DISCHARGE CONDITION: [Stable]. TIME SPENT ON DISCHARGE: 35 minutes. Vital Signs/I&Os Vital Signs Date Time Temp Pulse Resp B/P (MAP) Pulse Ox O2 Delivery O2 Flow Rate FiO2 01/16/21 08:07 97.7 67 20 138/67 (90) 94 Room Air I&O- Last 24 Hours up to 6 AM 01/16/21 06:00 Intake Total 800 ml Output Total 300 ml Balance 500 ml Laboratory Data Labs 24H Laboratory Tests 2 01/16/21 03:29: Immature Granulocyte % (Auto) 0.1, Neutrophils (%) (Auto) 82.0H, Lymphocytes (%) (Auto) 12.7L, Monocytes (%) (Auto) 5.0, Eosinophils (%) (Auto) 0.1, Basophils (%) (Auto) 0.1, Neutrophils # (Auto) 6.3, Lymphocytes # (Auto) 1.0L, Monocytes # (Auto) 0.4, Eosinophils # (Auto) 0.0, Basophils # (Auto) 0.0, Nucleated Red Blood Cells % (auto) 0.0, Anion Gap 8, Glomerular Filtration Rate 52.7, Calcium Level 9.1, Magnesium Level 1.6L CBC/BMP Laboratory Tests 01/16/21 03:29 Discharge Medications Scheduled Lisinopril (Lisinopril) 40 Mg Tablet, 40 MG PO DAILY, (Reported) Pantoprazole Sodium (Pantoprazole Sodium) 40 Mg Tablet.dr, 40 MG PO BID . Sucralfate (Sucralfate) 1 Gm/10 Ml Oral.susp, 1 GM PO ACHS . [Prevagen] , 1 CAP PO DAILY, (Reported) Scheduled PRN Tramadol HCl/Acetaminophen (Tramadol-Acetaminophn 37.5-325) 1 Tab Tab, 1 TAB PO DAILY PRN for PAIN LEVEL 1-5, (Reported) Allergies Coded Allergies: Penicillins (Verified Allergy, Intermediate, rash, 01/13/21) KEISHA AGARWAL MD Jan 16, 2021 13:42
[2021-01-16] MEDS ORDERED: PANTOPRAZOLE 40MG TAB (PROTONIX) PO SCH (21:00)
== END 2021-01-16 13:06 | disposition home health service (06) | DRG 382 ==
LOC: M ED 12:35 → M ED INP 18:25 → ENRESERV 01-14 16:15 → M PCU 01-14 17:51
PROVIDERS: ADMIT Internal Medicine; ATTEND Internal Medicine
PROC: 0D778DZ Dilation of Stomach, Pylorus with Intraluminal Device, Via Natural or Artificial Opening Endoscopic (ICD-10-PCS; 2021-01-15)
PROC: 0DB78ZX Excision of Stomach, Pylorus, Via Natural or Artificial Opening Endoscopic, Diagnostic (ICD-10-PCS; principal; 2021-01-15 15:45)
DX: K31.1 Adult hypertrophic pyloric stenosis (principal); D72.829 Elevated white blood cell count, unspecified; N18.30 Chronic kidney disease, stage 3 unspecified; E87.6 Hypokalemia; I12.9 Hypertensive chronic kidney disease with stage 1 through stage 4 chronic kidney disease, or unspecified chronic kidney disease; G30.9 Alzheimer's disease, unspecified; F02.80 Dementia in other diseases classified elsewhere, unspecified severity, without behavioral disturbance, psychotic disturbance, mood disturbance, and anxiety; K31.89 Other diseases of stomach and duodenum; K25.9 Gastric ulcer, unspecified as acute or chronic, without hemorrhage or perforation; K21.00 Gastro-esophageal reflux disease with esophagitis, without bleeding; M19.90 Unspecified osteoarthritis, unspecified site; Z20.822 Contact with and (suspected) exposure to COVID-19; Z79.899 Other long term (current) drug therapy; Z88.0 Allergy status to penicillin; Z90.49 Acquired absence of other specified parts of digestive tract

== ENCOUNTER → 2021-03-17 | Outpatient (REF) | payer MEDICARE ==
[~2021-03-17] MED LIST changes: +LISI40TA4 PO; +PANT40TA29 PO; +PREVAGEN PO; +SUCR1ORA PO; +[UNRECOGNIZED DRUG - OTHER] PO
[2021-03-17 16:20] LABS: HEMOGLOBIN 14.7 g/dl (12.0-15.5); MEAN CORPUSCULAR HEMOGLOBIN 28.5 pg (27.0-33.0); MEAN CORPUSCULAR HGB CONC 30.6 g/dl (32.0-36.5); MEAN CORPUSCULAR VOLUME 93.2 fl (80.0-96.0); PLATELET COUNT, AUTOMATED 269 10^3/uL (150-450); RED BLOOD COUNT 5.15 10^6/uL (4.00-5.40); WHITE BLOOD COUNT 5.6 10^3/uL (4.0-10.0)
[2021-03-17 16:53] LABS: BILIRUBIN,TOTAL 0.5 MG/DL (0.2-1.0); CALCIUM LEVEL 10.6 MG/DL (8.8-10.2); CREATININE FOR GFR 1.46 MG/DL (0.55-1.30); GLOMERULAR FILTRATION RATE 36.8 (>39); TOTAL PROTEIN 7.2 GM/DL (6.4-8.2)
== END ==
LOC: M SFHCCLAY 09:56
PROVIDERS: ATTEND Family Medicine
DX: I10 Essential (primary) hypertension (principal); M15.9 Polyosteoarthritis, unspecified

== ENCOUNTER → 2021-04-20 | Outpatient (CLI) | payer MEDICARE ==
[~2021-04-20] MED LIST changes: +E-Z-GAS II EFFERVESCENT PACKET (SODIUM BICARB./CITRIC ACID/SIMETHICONE) As Ordered ONE; +E-Z-HD 98% w/w 340GM SUSP BTL As Ordered ONE; +E-Z-PAQUE 96% w/w SUSP 176GM BTL As Ordered ONE
== END ==
LOC: M RAD 10:35
PROVIDERS: ATTEND Internal Medicine Gastroenterology
DX: K31.1 Adult hypertrophic pyloric stenosis (principal)

== ENCOUNTER → 2021-11-04 | Outpatient (REF) | payer MEDICARE ==
[~2021-11-04] MED LIST changes: -E-Z-GAS II EFFERVESCENT PACKET (SODIUM BICARB./CITRIC ACID/SIMETHICONE) As Ordered ONE; -E-Z-HD 98% w/w 340GM SUSP BTL As Ordered ONE; -E-Z-PAQUE 96% w/w SUSP 176GM BTL As Ordered ONE
[2021-11-04 11:37] LABS: HEMATOCRIT 46.1 % (36.0-47.0); HEMOGLOBIN 14.4 g/dl (12.0-15.5); MEAN CORPUSCULAR HEMOGLOBIN 29.4 pg (27.0-33.0); MEAN CORPUSCULAR HGB CONC 31.2 g/dl (32.0-36.5); MEAN CORPUSCULAR VOLUME 94.1 fl (80.0-96.0); PLATELET COUNT, AUTOMATED 263 10^3/uL (150-450); WHITE BLOOD COUNT 3.6 10^3/uL (4.0-10.0)
[2021-11-04 12:45] LABS: ERYTHROCYTE SEDIMENTATION RATE 16 mm/hr (0-30)
[2021-11-04 13:08] LABS: ALBUMIN 3.5 GM/DL (3.2-5.2); BILIRUBIN,TOTAL 0.4 MG/DL (0.2-1.0); CALCIUM LEVEL 9.8 MG/DL (8.8-10.2); CREATININE FOR GFR 1.12 MG/DL (0.55-1.30); FREE T4 1.09 NG/DL (0.76-1.46); GLOMERULAR FILTRATION RATE 49.8 (>32); THYROID STIMULATING HORMONE 2.08 uIU/ML (0.358-3.740); TOTAL PROTEIN 6.7 GM/DL (6.4-8.2)
[2021-11-04 13:54] LABS: PTH INTACT 107.2 PG/ML (18.5-88.0)
== END ==
LOC: M SFHCCLAY 07:25
PROVIDERS: ATTEND Family Medicine
DX: I10 Essential (primary) hypertension (principal); M15.9 Polyosteoarthritis, unspecified; E83.52 Hypercalcemia

== ENCOUNTER 2021-12-19 11:45 | Emergency (ER) | payer MEDICARE ==
[~2021-12-19] VITALS: Ht 154.9 cm; Wt 75.9 kg
[2021-12-19] MEDS ORDERED: [UNRECOGNIZED DRUG - REMARK] PO (11:56)
[2021-12-19 13:58] LABS: BASO % 0.3 % (0.0-1.0); EOS # 0.1 10^3/uL (0.0-0.5); EOS % 1.1 % (0.0-3.0); HEMATOCRIT 42.9 % (36.0-47.0); HEMOGLOBIN 13.4 g/dl (12.0-15.5); LYMPH # 1.3 10^3/uL (1.5-5.0); LYMPH % 18.3 % (24.0-44.0); MEAN CORPUSCULAR HEMOGLOBIN 28.9 pg (27.0-33.0); MEAN CORPUSCULAR HGB CONC 31.2 g/dl (32.0-36.5); MEAN CORPUSCULAR VOLUME 92.7 fl (80.0-96.0); MONO # 0.7 10^3/uL (0.0-0.8); MONO % 9.5 % (2.0-8.0); NEUTROPHILS # 5.1 10^3/uL (1.5-8.5); NEUTROPHILS % 70.5 % (36.0-66.0); PLATELET COUNT, AUTOMATED 378 10^3/uL (150-450); RED BLOOD COUNT 4.63 10^6/uL (4.00-5.40); WHITE BLOOD COUNT 7.2 10^3/uL (4.0-10.0)
[2021-12-19 14:28] LABS: CK-MB VALUE MASS < 1.0 NG/ML (<3.6); CPK CREATINE PHOSPHOKINASE 35 U/L (26-192); MB/CK RELATIVE INDEX 2.86 (< OR =4)
[2021-12-19 14:41] VITALS: BP 129/68
[2021-12-19 14:54] LABS: ALBUMIN 2.7 GM/DL (3.2-5.2); BILIRUBIN,DIRECT 0.1 MG/DL (0.0-0.2); BILIRUBIN,TOTAL 0.8 MG/DL (0.2-1.0); CALCIUM LEVEL 9.9 MG/DL (8.8-10.2); CREATININE FOR GFR 1.24 MG/DL (0.55-1.30); GLOMERULAR FILTRATION RATE 44.3 (>32); POTASSIUM SERUM 3.6 MEQ/L (3.5-5.1); THYROID STIMULATING HORMONE 0.935 uIU/ML (0.358-3.740); TOTAL PROTEIN 7.3 GM/DL (6.4-8.2)
== END 2021-12-19 15:52 | disposition home or self-care (01) ==
LOC: M ED 11:45
DX: R53.83 Other fatigue (principal); R63.8 Other symptoms and signs concerning food and fluid intake; I44.4 Left anterior fascicular block; I10 Essential (primary) hypertension; M19.90 Unspecified osteoarthritis, unspecified site; F03.90 Unspecified dementia, unspecified severity, without behavioral disturbance, psychotic disturbance, mood disturbance, and anxiety; K31.1 Adult hypertrophic pyloric stenosis; K26.9 Duodenal ulcer, unspecified as acute or chronic, without hemorrhage or perforation; Z79.899 Other long term (current) drug therapy; Z88.0 Allergy status to penicillin

== ENCOUNTER → 2022-08-25 | Outpatient (REF) | payer MEDICARE ==
[~2022-08-25] MED LIST changes: -ORPH100T PO; +ORPH1TAB6 PO; +[UNRECOGNIZED DRUG - REMARK] PO
[2022-08-25 11:37] LABS: HEMATOCRIT 40.9 % (36.0-47.0); HEMOGLOBIN 12.8 g/dl (12.0-15.5); MEAN CORPUSCULAR HEMOGLOBIN 29.2 pg (27.0-33.0); MEAN CORPUSCULAR HGB CONC 31.3 g/dl (32.0-36.5); MEAN CORPUSCULAR VOLUME 93.4 fl (80.0-96.0); PLATELET COUNT, AUTOMATED 281 10^3/uL (150-450); RED BLOOD COUNT 4.38 10^6/uL (4.00-5.40)
[2022-08-25 12:13] LABS: ALBUMIN 3.6 G/DL (3.2-5.2); BILIRUBIN,TOTAL 0.4 MG/DL (0.3-1.2); CALCIUM LEVEL 9.6 MG/DL (8.3-10.6); CREATININE FOR GFR 1.46 MG/DL (0.55-1.30); GLOMERULAR FILTRATION RATE 36.6 (>32); POTASSIUM SERUM 4.5 MMOL/L (3.5-5.1); THYROID STIMULATING HORMONE 2.463 uIU/ML (0.55-4.78); TOTAL PROTEIN 6.8 G/DL (5.7-8.2)
== END ==
LOC: M SFHCCLAY 08:14
PROVIDERS: ATTEND Family Medicine
DX: I10 Essential (primary) hypertension (principal); M15.9 Polyosteoarthritis, unspecified; F03.90 Unspecified dementia, unspecified severity, without behavioral disturbance, psychotic disturbance, mood disturbance, and anxiety

== ENCOUNTER → 2022-09-16 | Outpatient (REF) | payer MEDICARE ==
[2022-09-16 12:45] LABS: CREATININE FOR GFR 1.6 MG/DL (0.55-1.30); GLOMERULAR FILTRATION RATE 32.9 (>32); POTASSIUM SERUM 4.6 MMOL/L (3.5-5.1)
== END ==
LOC: M SFHCCLAY 08:56
PROVIDERS: ATTEND Family Medicine
DX: I10 Essential (primary) hypertension (principal)

== ENCOUNTER → 2023-02-12 | Outpatient (CLI) | payer MEDICARE ==
[2023-02-12 10:15] LABS: HEMATOCRIT 45.5 % (36.0-47.0); HEMOGLOBIN 14.3 g/dl (12.0-15.5); MEAN CORPUSCULAR HEMOGLOBIN 28.3 pg (27.0-33.0); MEAN CORPUSCULAR HGB CONC 31.4 g/dl (32.0-36.5); MEAN CORPUSCULAR VOLUME 89.9 fl (80.0-96.0); PLATELET COUNT, AUTOMATED 276 10^3/uL (150-450); RED BLOOD COUNT 5.06 10^6/uL (4.00-5.40)
[2023-02-12 10:44] LABS: ALBUMIN 3.5 G/DL (3.2-5.2); BILIRUBIN,TOTAL 0.6 MG/DL (0.3-1.2); CALCIUM LEVEL 9.6 MG/DL (8.3-10.6); CREATININE FOR GFR 1.1 MG/DL (0.55-1.30); GLOMERULAR FILTRATION RATE 50.7 (>32); MAGNESIUM LEVEL 1.6 MG/DL (1.8-2.4); POTASSIUM SERUM 3.7 MMOL/L (3.5-5.1); TOTAL PROTEIN 6.7 G/DL (5.7-8.2)
== END ==
LOC: M LAB 09:27
PROVIDERS: ATTEND Family Medicine
DX: Z51.81 Encounter for therapeutic drug level monitoring (principal); I10 Essential (primary) hypertension; M15.9 Polyosteoarthritis, unspecified; Z79.899 Other long term (current) drug therapy

== ENCOUNTER → 2023-09-23 | Outpatient (REF) | payer MEDICARE ==
[~2023-09-23] MED LIST changes: +TRAM-443 PO; -TRAM37.53 PO
== END ==
LOC: M SFHCCLAY 16:03
PROVIDERS: ATTEND Family Medicine
DX: I10 Essential (primary) hypertension (principal); E83.42 Hypomagnesemia

== ENCOUNTER → 2024-04-06 | Outpatient (CLI) | payer MEDICARE ==
[~2024-04-06] MED LIST changes: -TRAM-443 PO; +TRAM1TAB42 PO
== END ==
LOC: M CLY 14:40
PROVIDERS: ATTEND Physician Assistant Medical
DX: R05.1 Acute cough (principal)

== ENCOUNTER → 2024-04-11 | Outpatient (REF) | payer MEDICARE ==
[2024-04-11 18:11] LABS: ALBUMIN 3.4 G/DL (3.2-5.2); BILIRUBIN,TOTAL 0.4 MG/DL (0.3-1.2); CALCIUM LEVEL 8.9 MG/DL (8.3-10.6); CREATININE FOR GFR 1.07 MG/DL (0.55-1.30); GLOMERULAR FILTRATION RATE 52.3 (>32); MAGNESIUM LEVEL 1.6 MG/DL (1.8-2.4); POTASSIUM SERUM 3.3 MMOL/L (3.5-5.1); TOTAL PROTEIN 6.8 G/DL (5.7-8.2)
== END ==
LOC: M SFHCCLAY 13:45
PROVIDERS: ATTEND Physician Assistant
DX: Z00.00 Encounter for general adult medical examination without abnormal findings (principal); I10 Essential (primary) hypertension; E83.42 Hypomagnesemia; K21.9 Gastro-esophageal reflux disease without esophagitis; F03.90 Unspecified dementia, unspecified severity, without behavioral disturbance, psychotic disturbance, mood disturbance, and anxiety

== ENCOUNTER → 2024-05-26 | Outpatient (CLI) | payer MEDICARE ==
[2024-05-26 10:45] LABS: ALBUMIN 3.6 G/DL (3.2-5.2); BILIRUBIN,TOTAL 0.4 MG/DL (0.3-1.2); CREATININE FOR GFR 1.12 MG/DL (0.55-1.30); GLOMERULAR FILTRATION RATE 49.6 (>32); POTASSIUM SERUM 5.1 MMOL/L (3.5-5.1); TOTAL PROTEIN 6.8 G/DL (5.7-8.2)
== END ==
LOC: M LAB 08:59
PROVIDERS: ATTEND Physician Assistant
DX: E87.6 Hypokalemia (principal)

== ENCOUNTER → 2024-06-21 | Outpatient (CLI) | payer MEDICARE ==
[2024-06-21 11:12] LABS: FREE T4 1.29 NG/DL (0.89-1.76); THYROID STIMULATING HORMONE 0.934 uIU/ML (0.55-4.78)
[2024-06-21 11:13] LABS: FOLATE 13.8 NG/ML (>5.4)
== END ==
LOC: M LAB 09:42
PROVIDERS: ATTEND Psychiatry & Neurology Neurology
DX: E53.8 Deficiency of other specified B group vitamins (principal); E07.9 Disorder of thyroid, unspecified; R41.3 Other amnesia